=== PATIENT | male | born 1960 | race Caucasian/White ===

== ENCOUNTER 2017-02-08 02:14 | Inpatient (IN) | payer OTHER ==
[2017-02-08] MEDS ORDERED: ALBUTEROL SO4 2.5/IPRATROPIUM 0.5 INH SOL 3 ML VIAL.NEB. NEB ONE (02:28)
--- NOTE | 2017-02-08 02:37 | PDOC ---
History of Present Illness - General Chief Complaint: Shortness of Breath Stated Complaint: DIFFICULTY BREATHING Time Seen by Provider: 02/08/17 02:17 - History of Present Illness Initial Comments: 02/08/17 02:33 CHIEF COMPLAINT: shortness of breath HISTORY OF PRESENT ILLNESS: 56 yo M with hx of NIDDM, HTN, cerebral palsy, acid reflux presents to ED with shortness of breath since this evening. Patient reports that he was lying in bed when "the acid came up and went down my lungs. " He denies any fever, chills, vomiting, diarrhea. No recent travel or sick contacts. PAST MEDICAL HISTORY: as per HPI FAMILY HISTORY: Denies SOCIAL HISTORY: Denies tobacco, alcohol, illicit drug use. SURGICAL HISTORY: Denies ALLERGIES: aspirin REVIEW OF SYSTEMS General/Constitutional: Denies fever or chills. Denies weakness. HEENT: Denies change in vision. Denies ear pain or discharge. Denies sore throat. Cardiovascular: Denies chest pain. Respiratory: Wheezing, shortness of breath since this evening. Gastrointestinal: Denies nausea, vomiting, diarrhea or constipation. Denies rectal bleeding. Genitourinary: Denies dysuria, frequency, or change in urination. Musculoskeletal: Denies joint or muscle swelling or pain. Denies neck or back pain. Skin and breasts: Denies rash or easy bruising. Neurologic: Denies headache, vertigo, loss of consciousness, or loss of sensation. PHYSICAL EXAM General Appearance:Uncomfortable-appearing, appropriately dressed. HEENT: EOMI, PERRLA, normal ENT inspection, normal voice, TMs normal, pharynx normal. No conjunctival pallor. No photophobia, scleral icterus. Neck: Supple. Trachea midline. No tenderness, rigidity, carotid bruit, stridor , lymphadenopathy, or thyromegaly. Respiratory/Chest: Coughing. Increased work of breathing. Scattered wheezing bilaterally. No crackles, rales, rhonchi, stridor, dullness. Cardiovascular: RRR. S1, S2. No JVD, murmur, bradycardia, tachycardia. Gastrointestinal/Abdominal: Protuberant abdomen, non tender. No guarding. Normal bowel sounds. No organomegaly, pulsatile mass, guarding, hernia, hepatomegaly, splenomegaly. Musculoskeletal/Extremities: Normal inspection. FROM of all extremities, normal capillary refill. Pelvis Stable. No CVA tenderness. No tenderness to extremities, pedal edema, swelling, erythema or deformity. Integumentary: Appropriate color, dry, warm. No cyanosis, erythema, jaundice or rash Neurologic: sheet sewer II-XII intact. Fully oriented, alert. Appropriate mood/affect. Motor strength 5/5. No appreciable EOM palsy, facial droop or sensory deficit. Past History - Past Medical History Allergies/Adverse Reactions: Allergies Allergy/AdvReac Type Severity Reaction Status Date / Time aspirin Allergy Verified 02/08/17 02:28 Home Medications: Ambulatory Orders Amlodipine Besylate [Norvasc -] mg PO DAILY 02/08/17 Baclofen mg PO BID 02/08/17 Carvedilol [Coreg -] mg PO BID 02/08/17 Losartan Potassium 100 mg PO DAILY 02/08/17 Metformin HCl [Glucophage] 1,000 mg PO BID 02/08/17 Venlafaxine HCl ER [Effexor Xr -] mg PO DAILY 02/08/17 - Psycho/Social/Smoking Cessation Hx Suicidal Ideation: No Smoking History: Unknown if ever smoked *Physical Exam - Vital Signs Last Vital Signs Temp Pulse Resp BP Pulse Ox 97.7 F 71 20 151/92 96 02/08/17 02:16 02/08/17 02:16 02/08/17 02:16 02/08/17 02:16 02/08/17 02:16 ED Treatment Course - LABORATORY CBC & Chemistry Diagram: 02/08/17 03:00 02/08/17 03:00 - RADIOLOGY Radiology Studies Ordered: Category Date Time Status CHEST PA & LAT [RAD] Stat Radiology 02/08/17 02:33 Ordered Medical Decision Making - Medical Decision Making 02/08/17 04:56 56 yo M with hx of NIDDM, HTN, cerebral palsy, acid reflux presents to ED with shortness of breath since this evening. -CBC, CMP, trop, BNP, PT/INR -CXR, EKG -Duoneb EKG- NSR CXR negative for acute pathology. Glucose - 304 BUN 24 Labs otherwise unremarkable -1L IVF Patient continues to have increased work of breathing and wheezing b/l. -10 mg Decadron -Albuterol neb -D-dimer r/o PE. D-dimer 410. -CTA eval for PE 02/08/17 06:06 Impression: Suboptimal bolus. No central pulmonary embolism identified. Patchy infiltrates and a small area of consolidation in the dependent left base may represent pneumonia. Read by: Flakito Connell M.D. Patient continues to have increased work of breathing despite Duoneb and albuterol nebs and 10 mg Decadron. Discussed case with ER attending MD Sherman, will admit for inpatient services due to new O2 requirement. *DC/Admit/Observation/Transfer Diagnosis at time of Disposition: Pneumonia Qualifiers: Pneumonia type: due to unspecified organism Laterality: left Lung location: lower lobe of lung Qualified Code(s): J18.1 - Lobar pneumonia, unspecified organism - Discharge Dispostion Admit: Yes
[2017-02-08 03:18] LABS: BASOPHIL 0.3 % (0-2.0); EOSINOPHIL 2.2 % (0-4.5); MCH 28.3 pg (25.7-33.7); MCHC 34.3 g/dl (32.0-35.9); MEAN CELL VOLUME 82.6 fl (80-96); MEAN PLT VOLUME 9.2 fl (7.5-11.1); NEUTROPHILS 56.6 % (42.8-82.8); PLATELET COUNT 155 K/MM3 (134-434); RDW 14.5 % (11.9-15.9); WHITE BLOOD COUNT 6.2 K/mm3 (4.0-10.0)
[2017-02-08 03:42] LABS: ALBUMIN 3.6 g/dl (3.4-5.0); ALK PHOS 111 U/L (45-117); ANION GAP 9 (8-16); BILIRUBIN,TOTAL 0.4 mg/dL (0.2-1.0); CALCIUM 9.1 mg/dL (8.5-10.1); CO2 27 mmol/L (21-32); SGOT/AST 13 U/L (15-37); SGPT/ALT 42 U/L (12-78); TOT PROT 6.6 g/dl (6.4-8.2)
[2017-02-08 03:44] LABS: GLUCOSE,RANDOM 304 mg/dL (74-106)
[2017-02-08 03:52] LABS: CPK 66 IU/L (39-308); TROPONIN I < 0.02 ng/ml (0.00-0.05)
[2017-02-08] MEDS ORDERED: SODIUM CHLORIDE 0.9% 1000 ML INFUS.BAG IV ONE (03:54)
[2017-02-08] MEDS ORDERED: DEXAMETHASONE SOD PHOSPHATE 10 MG/1 ML VIAL IVPUSH ONE (04:00)
[2017-02-08] MEDS ORDERED: IPRATROPIUM BR 0.02% 0.5 MG/2.5 ML VIAL.NEB. NEB ONE (04:22)
[2017-02-08] MEDS ORDERED: ALBUTEROL SO4 0.083% IH SOL 2.5 MG/3 ML VIAL.NEB. NEB ONE (04:23)
[2017-02-08] MEDS ORDERED: DEXAMETHASONE SOD PHOSPHATE 10 MG/1 ML VIAL ONE (04:42)
--- NOTE | 2017-02-08 06:19 | PDOC ---
*Physical Exam - Vital Signs Last Vital Signs Temp Pulse Resp BP Pulse Ox 97.7 F 80 20 151/92 93 L 02/08/17 02:16 02/08/17 03:55 02/08/17 02:16 02/08/17 02:16 02/08/17 03:55 ED Treatment Course - LABORATORY CBC & Chemistry Diagram: 02/08/17 03:00 02/08/17 03:00 - ADDITIONAL ORDERS Additional order review: Laboratory Results 02/08/17 02/08/17 02/08/17 04:00 03:00 02:56 D-Dimer 410 H Sodium 140 Potassium 4.2 Chloride 104 Carbon Dioxide 27 Anion Gap 9 BUN 24 H Creatinine 1.0 Creat Clearance w eGFR > 60 Random Glucose 304 H* Calcium 9.1 Total Bilirubin 0.4 AST 13 L ALT 42 Alkaline Phosphatase 111 Creatine Kinase 66 Troponin I < 0.02 B-Natriuretic Peptide 8.51 Total Protein 6.6 Albumin 3.6 02/08/17 03:00 RBC 5.24 MCV 82.6 MCHC 34.3 RDW 14.5 MPV 9.2 Neutrophils % 56.6 Lymphocytes % 33.7 Monocytes % 7.2 Eosinophils % 2.2 Basophils % 0.3 - Medications Given in the ED: ED Medications Discontinued Medications Generic Name Dose Route Start Last Admin Trade Name Bob PRN Reason Stop Dose Admin Albuterol Sulfate 1 amp 02/08/17 04:23 02/08/17 04:42 Ventolin 0.083% Nebulizer Soln - NEB 02/08/17 04:24 1 amp ONCE ONE Administration Albuterol/Ipratropium 1 amp 02/08/17 02:28 02/08/17 03:07 Duoneb - NEB 02/08/17 02:29 1 amp ONCE ONE Administration Dexamethasone Sodium Phosphate 10 mg 02/08/17 04:00 02/08/17 04:41 Decadron Injection - IVPUSH 02/08/17 04:01 10 mg ONCE ONE Administration Ipratropium [place] 1 amp 02/08/17 04:22 02/08/17 04:41 Atrovent 0.02% Nebulizer - NEB 02/08/17 04:23 Not Given ONCE ONE Sodium Chloride 1,000 ml 02/08/17 03:54 02/08/17 04:41 Normal Saline - IV 02/08/17 03:55 1,000 ml ONCE ONE Administration Medical Decision Making - Medical Decision Making 02/08/17 06:18 Agree with NETWORK CONTRACT MANAGER's evaluation, assessment, and plan. 56M with DM, HTN, cerebral palsy, ?history of asthma in distant past, presenting with 1 day of SOB. Pt reports waking suddenly from sleep feeling like he was choking. He believes that he aspirated while sleeping. Pt with audible wheezes bilaterally on exam, suggestive of reactive airway disease. However, given acute onset SOB with hypoxia in ER, PE should be considered. - CTPE limited due to poor contrast distribution - Despite multiple nebs, pt still tachypneic and slightly hypoxic - Continue treatment for asthma, admit given new O2 requirement 02/08/17 06:51 *DC/Admit/Observation/Transfer Diagnosis at time of Disposition: Pneumonia Qualifiers: Pneumonia type: due to unspecified organism Laterality: left Lung location: lower lobe of lung Qualified Code(s): J18.1 - Lobar pneumonia, unspecified organism - Discharge Dispostion Condition at time of disposition: Stable - Attestations Physician Attestion: 02/08/17 06:52 I, Dr. Nader Sherman MD, attest that this document has been prepared under my direction and personally reviewed by me in its entirety. I further attest, that it accurately reflects all work, treatment, procedures and medical decision -making performed by me.
[2017-02-08] MEDS ORDERED: LEVOFLOXACIN 750 MG TABLET PO ONE (06:27)
[2017-02-08] MEDS ORDERED: PANTOPRAZOLE 40 MG TABLET (FP) PO ONE (06:32)
[2017-02-08] MEDS ORDERED: LEVOFLOXACIN 500 MG TABLET (FP) ONE (06:38)
[2017-02-08] MEDS ORDERED: PANTOPRAZOLE 40 MG TABLET (FP) ONE (06:38)
[2017-02-08] MEDS ORDERED: LEVOFLOXACIN 250 MG TABLET (FP) ONE (06:38)
[2017-02-08 07:57] LABS: VENOUS BLOOD GAS HCO3 21.8 meq/L (19-25); VENOUS PH 7.35 (7.32-7.42)
--- NOTE | 2017-02-08 08:49 | HP ---
CHIEF COMPLAINT: shortness of breath PCP: HISTORY OF PRESENT ILLNESS: 56 yo M with significant PMhx of NIDDM, HTN, cerebral palsy and GERD presents to ED via EMS with shortness of breath. He states that last night at approx. 2 am he felt as if "acid went down into my lung". He subsequently became very short of breath and in moderate distress. He mentions that for the past few days he has had a productive cough, generalized weakness and "felt warm". SOB is accompanied by sharp right sided chest pain made worse with deep inspiration. He mentions that about a week ago his children had upper respiratory infections. Denies JANG, palpitations, abd. pain, N/V/D/C or urinary symptoms. ER course was notable for: (1)Increased oxygen requirements despite Duonebs and Decadron administration ( O2 sat 93 on 2L ) (2)CTA was negative for PE but did show LLL infiltrate-possible PNA (3)Given Levaquin 750mg IV x1 Recent Travel: Denies PAST MEDICAL HISTORY:NIDDM, HTN, cerebral palsy and GERD PAST SURGICAL HISTORY: Lower ext. ligament release Social History: Smoking: Denies Alcohol: Denies Drugs: Denies Family History: Allergies aspirin Allergy (Verified 02/08/17 02:28) HOME MEDICATIONS: Home Medications Medication Instructions Recorded Amlodipine Besylate [Norvasc -] mg PO DAILY 02/08/17 Baclofen mg PO BID 02/08/17 Carvedilol [Coreg -] mg PO BID 02/08/17 Losartan Potassium 100 mg PO DAILY 02/08/17 Metformin HCl [Glucophage] 1,000 mg PO BID 02/08/17 Venlafaxine HCl ER [Effexor Xr -] mg PO DAILY 02/08/17 REVIEW OF SYSTEMS CONSTITUTIONAL:generalized weakness Absent: fever, chills, diaphoresis, malaise, loss of appetite, weight change HEENT: Absent: rhinorrhea, nasal congestion, throat pain, throat swelling, difficulty swallowing, mouth swelling, ear pain, eye pain, visual changes CARDIOVASCULAR:chest pain, Absent: syncope, palpitations, irregular heart rate, lightheadedness, peripheral edema RESPIRATORY: cough, shortness of breath, dyspnea with exertion Absent: , orthopnea, wheezing, stridor, hemoptysis GASTROINTESTINAL: Absent: abdominal pain, abdominal distension, nausea, vomiting, diarrhea, constipation, melena, hematochezia GENITOURINARY: Absent: dysuria, frequency, urgency, hesitancy, hematuria, flank pain, genital pain MUSCULOSKELETAL: Absent: myalgia, arthralgia, joint swelling, back pain, neck pain SKIN: Absent: rash, itching, pallor HEMATOLOGIC/IMMUNOLOGIC: Absent: easy bleeding, easy bruising, lymphadenopathy, frequent infections ENDOCRINE: Absent: unexplained weight gain, unexplained weight loss, heat intolerance, cold intolerance NEUROLOGIC: Absent: headache, focal weakness or paresthesias, dizziness, unsteady gait, seizure, mental status changes, bladder or bowel incontinence PSYCHIATRIC: Absent: anxiety, depression, suicidal or homicidal ideation, hallucinations. PHYSICAL EXAMINATION Vital Signs - 24 hr 02/08/17 02/08/17 06:54 08:06 Temperature 97.8 F Pulse Rate 101 H Pulse Rate [ 87 101 H Right] Respiratory 23 20 Rate Blood Pressure 177/87 139/77 [Left Arm] O2 Sat by Pulse 95 96 Oximetry (%) GENERAL: AAO x3 mild distress HEAD:NC/AT EYES: PERRLA,EOMI sclera anicteric, conjunctiva clear. No lid lag. EARS, NOSE, THROAT: Ears normal, nares patent, oropharynx clear without exudates. Moist mucous membranes. NECK: Normal ROM, no jvd, lad, or masses LUNGS: diminished breath sounds and fine rales of Left base. No wheezes, No accessory muscle use. HEART: Tachycardic, normal S1 and S2 without murmur, rub or gallop. ABDOMEN: Soft, obese, nontender, not distended, normoactive bowel sounds, no guarding, no rebound, no masses. No hepatomegaly or splenomegaly. MUSCULOSKELETAL: Normal range of motion at all joints. No bony deformities or tenderness. No CVA tenderness. UPPER EXTREMITIES: 2+ pulses, warm, well-perfused. No cyanosis. No clubbing. No peripheral edema. LOWER EXTREMITIES: 2+ pulses, warm, well-perfused. No calf tenderness. No peripheral edema. Bilateral lower ext. venous stasis changes. NEUROLOGICAL: Cranial nerves II-XII intact. Normal speech. Normal gait. PSYCHIATRIC: Cooperative. Good eye contact. anxious SKIN: Warm, dry, normal turgor, no rashes or lesions noted, normal capillary refill. Laboratory Results - last 24 hr 02/08/17 07:30 VBG pH 7.35 POC VBG pCO2 40.9 POC VBG pO2 39.0 Mixed VBG HCO3 21.8 ASSESSMENT/PLAN: 56 yo M with significant PMhx of NIDDM, HTN, cerebral palsy and GERD admitted for CAP vs. aspiration pneumonitis. Problem List - Problem (1) Pneumonia Assessment/Plan: * CTA shows possible LLL PNA * Will admit to med-surg * Given one time dose of Levaquin 750mg IV in ED. -->will continue for now. * Blood and sputum cultures pending. * Duonebs PRN for SOB. * Supplemental O2 to maintain SpO2 > 90--VBG did not show any acid/base disturbance. * Solumedrol 40mg IV BID * Encourage ambulation. * Incentive spirometry. * Repeat CBC in AM (no leukocytosis on initial labs) (2) HTN (hypertension) Assessment/Plan: * Will continue home meds of * Norvasc 10 mg PO DAILY * Coreg 12.5 mg PO BID * Losartan Potassium 100 mg PO DAILY (3) Type 2 diabetes mellitus Assessment/Plan: * Metformin held because of CTA contrast. * NISS with novolog * BGM ACHS * ADA diet. (4) GERD (gastroesophageal reflux disease) Assessment/Plan: * Protonix 40mg PO daily Visit type - Emergency Visit Emergency Visit: Yes ED Registration Date: 02/08/17 Care time: The patient presented to the Emergency Department on the above date and was hospitalized for further evaluation of their emergent condition. - New Patient This patient is new to me today: Yes Date on this admission: 02/08/17 - Critical Care Critical Care patient: No
--- NOTE | 2017-02-08 09:31 | HP ---
CHIEF COMPLAINT: Shortness of Breath PCP: Dr. Luci Donaldson HISTORY OF PRESENT ILLNESS: Pt is a 56yo M with hx of mildly progressing SOB with exertion, recent URI, GERD , and Cerebral palsy (w/ mild bilateral leg spasticity) who presented to the ER with acute onset shortness of breath. Last night, after the pt ate a bag of chips, he was resting and had a bout of acid reflux which went down his windpipe. He started coughing and quickly vomitted x1 NBNB emesis. He acutely felt short of breath and chest tightness and was brought to the ER via ambulance. The patient has been told he has possible reactive airway disease in the past, but does not take inhalers at home. He states he has been having chronic SOB over the past couple of weeks, with "attacks" with allergens (cats, ASA, pollen), sometimes exercise, and reflux. He has a remote history of occupational exposure and second hand smoking. He has no problems swallowing, does not follow with a slot host. In the ED he was found to have labored respirations, and was given 2x nebulizer treatments with 10mg Decadron x1 with improvement. O2 sats without O2 was 92-94. ER course was notable for: (1) Labs - No white count (2) EKG - WNL (3) CXR - Negative (4) High d-dimer; CTA - suboptimal bolus, No PE, patchy infiltrates and small area of consolidation in LLB (5) Levoquin 750mg PO x1 Recent Travel: Denies PAST MEDICAL HISTORY: ?Reactive Airway Disease, GERD, Cerebral Palsy, NIDDM, HTN PAST SURGICAL HISTORY: ?Nasal polyp removal, B/L LE tendon release for spasticity relief Social History: Smoking: Remote 2nd hand smoking Alcohol: Occasional Drugs: Denies Family History: No Family Hx of Asthma; Mom passed of Gastric CA; Dad passed of Kidney CA Allergies As per Patient: Cats, Pollen aspirin Allergy (Verified 02/08/17 02:28) HOME MEDICATIONS: Home Medications Medication Instructions Recorded Amlodipine Besylate [Norvasc -] 10 mg PO DAILY 02/08/17 Baclofen 10 mg PO TID 02/08/17 Carvedilol [Coreg -] 12.5 mg PO BID 02/08/17 Losartan Potassium 100 mg PO DAILY 02/08/17 Metformin HCl [Glucophage] 1,000 mg PO BID 02/08/17 Topiramate [Topamax] 50 mg PO BID 02/08/17 Venlafaxine HCl ER [Effexor Xr -] 150 mg PO DAILY 02/08/17 Medication Verification: Verified 02/08/17 REVIEW OF SYSTEMS CONSTITUTIONAL: Absent: fever, chills, diaphoresis, generalized weakness, malaise, loss of appetite, weight change HEENT: Absent: rhinorrhea, nasal congestion, throat pain, throat swelling, difficulty swallowing, mouth swelling, ear pain, eye pain, visual changes Present: Post nasal drip CARDIOVASCULAR: Absent: chest pain, syncope, palpitations, irregular heart rate, lightheadedness , peripheral edema RESPIRATORY: Absent: orthopnea, wheezing, stridor, hemoptysis Present: chest tightness, SOB with exertion, dry cough GASTROINTESTINAL: Absent: abdominal pain, abdominal distension, nausea, vomiting, diarrhea, constipation, melena, hematochezia Present: reflux GENITOURINARY: Absent: dysuria, frequency, urgency, hesitancy, hematuria, flank pain, genital pain MUSCULOSKELETAL: Absent: myalgia, arthralgia, joint swelling, back pain, neck pain Present: spasticity in both legs SKIN: Absent: rash, itching, pallor HEMATOLOGIC/IMMUNOLOGIC: Absent: easy bleeding, easy bruising, lymphadenopathy, frequent infections ENDOCRINE: Absent: unexplained weight gain, unexplained weight loss, heat intolerance, cold intolerance NEUROLOGIC: Absent: headache, focal weakness or paresthesias, dizziness, unsteady gait, seizure, mental status changes, bladder or bowel incontinence PSYCHIATRIC: Absent: anxiety, depression, suicidal or homicidal ideation, hallucinations. PHYSICAL EXAMINATION Vital Signs - 24 hr 02/08/17 02/08/17 06:54 08:06 Temperature 97.8 F Pulse Rate 101 H Pulse Rate [ 87 101 H Right] Respiratory 23 20 Rate Blood Pressure 177/87 139/77 [Left Arm] O2 Sat by Pulse 95 96 Oximetry (%) GEN: AAOx3, NAD, comfortably breathing HEENT: PERRLA, EOMi, No pharyngeal exudate, no cervical LAD LUNG: Mod inspiratory effort, Crackles in L lung [place], no wheezes CV: S1, S2, RRR, no murmurs ABD: Obese, soft, NT, ND, normoactive BS MSK: 2+ pitting edema on BLLE, no erythema, BLLE spasticity Neuro: CN 2-12 intact, sensation intact in face/body; MSK 5/5; Reflexes 1+ throughout Laboratory Results - last 24 hr 02/08/17 07:30 VBG pH 7.35 POC VBG pCO2 40.9 POC VBG pO2 39.0 Mixed VBG HCO3 21.8 Laboratory Last Values WBC 6.2 K/mm3 (4.0-10.0) 02/08/17 03:00 RBC 5.24 M/mm3 (4.00-5.60) 02/08/17 03:00 Hgb 14.9 GM/dL (11.7-16.9) 02/08/17 03:00 Hct 43.3 % (35.4-49) 02/08/17 03:00 MCV 82.6 fl (80-96) 02/08/17 03:00 MCH 28.3 pg (25.7-33.7) 02/08/17 03:00 MCHC 34.3 g/dl (32.0-35.9) 02/08/17 03:00 RDW 14.5 % (11.9-15.9) 02/08/17 03:00 Plt Count 155 K/MM3 (134-434) 02/08/17 03:00 MPV 9.2 fl (7.5-11.1) 02/08/17 03:00 Neutrophils % 56.6 % (42.8-82.8) 02/08/17 03:00 Lymphocytes % 33.7 % (8-40) 02/08/17 03:00 Monocytes % 7.2 % (3.8-10.2) 02/08/17 03:00 Eosinophils % 2.2 % (0-4.5) 02/08/17 03:00 Basophils % 0.3 % (0-2.0) 02/08/17 03:00 D-Dimer 410 ng/ml (<200-235) H 02/08/17 04:00 VBG pH 7.35 (7.32-7.42) 02/08/17 07:30 POC VBG pCO2 40.9 mmHg (38-52) 02/08/17 07:30 POC VBG pO2 39.0 mmHg (28-48) 02/08/17 07:30 Mixed VBG HCO3 21.8 meq/L (19-25) 02/08/17 07:30 Sodium 140 mmol/L (136-145) 02/08/17 03:00 Potassium 4.2 mmol/L (3.5-5.1) 02/08/17 03:00 Chloride 104 mmol/L (98-107) 02/08/17 03:00 Carbon Dioxide 27 mmol/L (21-32) 02/08/17 03:00 Anion Gap 9 (8-16) 02/08/17 03:00 BUN 24 mg/dL (7-18) H 02/08/17 03:00 Creatinine 1.0 mg/dL (0.7-1.3) 02/08/17 03:00 Creat Clearance w eGFR > 60 (>60) 02/08/17 03:00 Random Glucose 304 mg/dL (74-106) H* 02/08/17 03:00 Calcium 9.1 mg/dL (8.5-10.1) 02/08/17 03:00 Total Bilirubin 0.4 mg/dL (0.2-1.0) 02/08/17 03:00 AST 13 U/L (15-37) L 02/08/17 03:00 ALT 42 U/L (12-78) 02/08/17 03:00 Alkaline Phosphatase 111 U/L (45-117) 02/08/17 03:00 Creatine Kinase 66 IU/L (39-308) 02/08/17 02:56 Troponin I < 0.02 ng/ml (0.00-0.05) 02/08/17 02:56 B-Natriuretic Peptide 8.51 pg/ml (5-125) 02/08/17 02:56 Total Protein 6.6 g/dl (6.4-8.2) 02/08/17 03:00 Albumin 3.6 g/dl (3.4-5.0) 02/08/17 03:00 ASSESSMENT/PLAN: Pt is a 56yo M with hx of mildly progressing SOB with exertion, recent URI, GERD , and Cerebral palsy (w/ mild bilateral leg spasticity) who presented to the ER with acute onset shortness of breath. He was given breathing treatments and Levaquin in the ER. # Aspiration Pneumonitis - CTA showed patchy infiltrates and small area of consolidation in LLB - Continue Levaquin 750mg IV QD - IV Flagyl 500mg Q8 - Monitor fever, WBC for progression to PNA - Pending Sputum cx - Consulted Pulmonology # Asthma Exacerbation - Multiple exacerbating factors, acutely by aspiration pneumonitis - Duonebs PRN + IV solumedrol 40mg BID - Monitor PEF (330 in ER) - Bentley PEF using height/age is 546 - Monitor for improvement in breathing/chest tightness - Outpatient f/u with slot host # GERD - Pt on no meds - Start on Protonix 40mg PO QD # NIDDM - Hold metformin due to recent contrast from CTA - BGMs and SSI - A1C # HTN - Pt did not take his home meds today - Continue Norvasc + Losartan + Carvedilol # Cerebral Palsy - Continue Baclofen for spasticity # Hx of Migraines - Continue Topiramate # Hx of MDD - Continue Venlafaxine # FEN - Fluids: Nont - Electrolytes: No abnormalities - Nutrition: Diabetic diet # Prophylaxis - DVT: Heparin SQ 5000 TID - GI: On protonix - Deconditioning: PT to be ordered Visit type - Emergency Visit Emergency Visit: No - New Patient This patient is new to me today: No - Critical Care Critical Care patient: No
[2017-02-08] MEDS ORDERED: BACLOFEN 10 MG TABLET (FP) PO SCH (10:00)
--- NOTE | 2017-02-08 11:09 | EKG ---
Test Reason : Blood Pressure : / mmHG Vent. Rate : 074 BPM Atrial Rate : 074 BPM P-R Int : 152 ms QRS Dur : 102 ms QT Int : 392 ms P-R-T Axes : 024 037 047 degrees QTc Int : 435 ms NORMAL SINUS RHYTHM ATYPICAL R WAVE PROGRESSION V2 NO PREVIOUS ECGS AVAILABLE REPEAT EKG IF CLINICALLY INDICATED Confirmed by MARIAJOSE BATES MD ([id number]) on 02/08/2017 11:08:23 AM Referred By: Confirmed By:MARIAJOSE BATES MD
[2017-02-08] MEDS ORDERED: ALBUTEROL SO4 2.5/IPRATROPIUM 0.5 INH SOL 3 ML VIAL.NEB. NEB PRN (11:20)
[2017-02-08] MEDS: TOPIRAMATE 25 MG TABLET (FP) PO SCH ×2 (11:44→21:28)
[2017-02-08] MEDS: CARVEDILOL 12.5 MG TABLET (FP) PO SCH ×2 (11:44→21:28)
[2017-02-08] MEDS: amLODIPine BESYLATE 10 MG TABLET (FP) PO SCH (11:44)
[2017-02-08] MEDS: LOSARTAN POTASSIUM 50 MG TABLET (FP) PO SCH (11:44)
[2017-02-08] MEDS: VENLAFAXINE HCL 75 MG E.R. CAPSULES (FP) PO SCH (11:46)
[2017-02-08] MEDS ORDERED: INSULIN (NOVOLOG) ASPART 100 UNITS/ML 10ML VIAL ONE ×2 (12:13→12:44)
[2017-02-08] MEDS: INSULIN SLIDING SCALE (NOVOLOG) 1 VIAL SQ SCH ×2 (12:23→18:39)
[2017-02-08] MEDS: methylPREDNISolone NA SUCC 40 MG/1 ML VIAL IVPB SCH (12:24)
--- NOTE | 2017-02-08 15:10 | PN ---
Teaching Attending Note Name of Resident: Calderon Lomas ATTENDING PHYSICIAN STATEMENT I saw and evaluated the patient. I reviewed the resident's note and discussed the case with the resident. I agree with the resident's findings and plan as documented. SUBJECTIVE: Patient is a 56yo male presented with acute shortness of breath, states that he was eating Chetoos the whole bad, started to cough and became very short of breath. but his shortness of breath was going for the past 2 days. OBJECTIVE: Vital Signs Temperature 98.6 F 02/08/17 11:18 Pulse Rate 103 H 02/08/17 11:18 Respiratory Rate 18 02/08/17 11:18 Blood Pressure 152/91 02/08/17 11:18 O2 Sat by Pulse Oximetry (%) 96 02/08/17 08:06 CBCD WBC 6.2 K/mm3 (4.0-10.0) 02/08/17 03:00 RBC 5.24 M/mm3 (4.00-5.60) 02/08/17 03:00 Hgb 14.9 GM/dL (11.7-16.9) 02/08/17 03:00 Hct 43.3 % (35.4-49) 02/08/17 03:00 MCV 82.6 fl (80-96) 02/08/17 03:00 MCHC 34.3 g/dl (32.0-35.9) 02/08/17 03:00 RDW 14.5 % (11.9-15.9) 02/08/17 03:00 Plt Count 155 K/MM3 (134-434) 02/08/17 03:00 MPV 9.2 fl (7.5-11.1) 02/08/17 03:00 CMP Sodium 140 mmol/L (136-145) 02/08/17 03:00 Potassium 4.2 mmol/L (3.5-5.1) 02/08/17 03:00 Chloride 104 mmol/L (98-107) 02/08/17 03:00 Carbon Dioxide 27 mmol/L (21-32) 02/08/17 03:00 Anion Gap 9 (8-16) 02/08/17 03:00 BUN 24 mg/dL (7-18) H 02/08/17 03:00 Creatinine 1.0 mg/dL (0.7-1.3) 02/08/17 03:00 Creat Clearance w eGFR > 60 (>60) 02/08/17 03:00 Random Glucose 304 mg/dL (74-106) H* 02/08/17 03:00 Calcium 9.1 mg/dL (8.5-10.1) 02/08/17 03:00 Total Bilirubin 0.4 mg/dL (0.2-1.0) 02/08/17 03:00 AST 13 U/L (15-37) L 02/08/17 03:00 ALT 42 U/L (12-78) 02/08/17 03:00 Alkaline Phosphatase 111 U/L (45-117) 02/08/17 03:00 Total Protein 6.6 g/dl (6.4-8.2) 02/08/17 03:00 Albumin 3.6 g/dl (3.4-5.0) 02/08/17 03:00 CARDIAC ENZYMES Creatine Kinase 66 IU/L (39-308) 02/08/17 02:56 Troponin I < 0.02 ng/ml (0.00-0.05) 02/08/17 02:56 Current Medications Generic Name Dose Route Start Last Admin Trade Name Freq PRN Reason Stop Dose Admin Albuterol/Ipratropium 1 amp 02/08/17 11:20 Duoneb - NEB Q4H PRN SHORTNESS OF BREATH Amlodipine Besylate 10 mg 02/08/17 10:00 02/08/17 11:44 Norvasc - PO 10 mg DAILY CALDERON Administration Baclofen 10 mg 02/08/17 14:00 Lioresal - PO TID CALDERON Carvedilol 12.5 mg 02/08/17 10:00 02/08/17 11:44 Coreg - PO 12.5 mg BID CALDERON Administration Heparin Sodium (Porcine) 5,000 unit 02/08/17 14:00 Heparin - SQ TID CALDERON Levofloxacin 150 mls @ 100 mls/hr 02/09/17 09:00 Levaquin 750 Mg Premixed Ivpb - IVPB 02/09/17 10:29 ONCE ONE Insulin Aspart 1 vial 02/08/17 16:30 02/08/17 12:23 Novolog Vial Sliding Scale - SQ 6 units TIDAC CALDERON Administration Protocol Losartan Potassium 100 mg 02/08/17 10:00 02/08/17 11:44 Cozaar - PO 100 mg DAILY CALDERON Administration Methylprednisolone Sodium Succinate 40 mg 02/08/17 11:30 02/08/17 12:24 Solu-Medrol - IVPB 40 mg DAILY CALDERON Administration Pantoprazole Sodium 40 mg 02/09/17 10:00 Protonix - PO DAILY CALDERON Topiramate 50 mg 02/08/17 10:00 02/08/17 11:44 Topamax - PO 50 mg BID CALDERON Administration Venlafaxine HCl 150 mg 02/08/17 10:00 02/08/17 11:46 Effexor Xr - PO 150 mg DAILY CALDERON Administration Home Medications Medication Instructions Recorded Amlodipine Besylate [Norvasc -] 10 mg PO DAILY 02/08/17 Baclofen 10 mg PO TID 02/08/17 Carvedilol [Coreg -] 12.5 mg PO BID 02/08/17 Losartan Potassium 100 mg PO DAILY 02/08/17 Metformin HCl [Glucophage] 1,000 mg PO BID 02/08/17 Topiramate [Topamax] 50 mg PO BID 02/08/17 Venlafaxine HCl ER [Effexor Xr -] 150 mg PO DAILY 02/08/17 PE: per residents note CTA of lung: showed patchy infiltrates and small area of consolidation in LLB ASSESSMENT AND PLAN: Pt is a 56yo M with hx of mildly progressing SOB with exertion, recent URI, GERD , and Cerebral palsy (w/ mild bilateral leg spasticity) who presented to the ER with acute onset shortness of breath. He was given breathing treatments and Levaquin in the ER. # Acute Patchy infiltrate s/p Aspiration his own secretions/cheetos on Levaquin added Flagyl for aspiration anaerobic coverage yeyo get ID to see the patient as well. # Asthma Exacerbation on Duoneb continue # GERD added protonix (short term use) # NIDDM Hold metformin due to recent contrast from CTA, BGMs and SSI, follow Hemoglobin A1c # HTN continue home meds Norvasc , Losartan, Carvedilol ( patient takes it for his blood pressure but thinks that might be causing him to have shortness of breath) Please call his fire alarm installer for further information. # Cerebral Palsy continue Baclofen for spasticity # Hx of Migraines continue Topiramate # Hx of Depression continue Venlafaxine DVT PX: Heparin
[2017-02-08] MEDS: BACLOFEN 10 MG TABLET (FP) PO SCH ×2 (15:37→21:28)
[2017-02-08] MEDS: HEPARIN NA (PORCINE) 5,000 UNITS/ML 1ML VIAL SQ SCH ×3 (15:37→21:38)
--- NOTE | 2017-02-08 16:50 | PN ---
Progress Note (short form) - Note Progress Note: PULMONARY CONSULTATION DICTATED 02/08/17 IMP LIKELY ASPIRATION PNEUMONIA LLL GERD CEREBRAL PALSY LIKELY OSAS OBESITY ? HYPER-REACTIVE AIRWAY DM PLAN ANTIBIOTICS INHALED BRONCHODILATORS F/U CHEST X-RAY SLEEP STUDIES OUTPATIENT PFTS OUTPATIENT DR BRISENO Problem List - Problems (1) GERD (gastroesophageal reflux disease) Code(s): K21.9 - GASTRO-ESOPHAGEAL REFLUX DISEASE WITHOUT ESOPHAGITIS Qualifiers: Esophagitis presence: esophagitis presence not specified Qualified Code(s): K21.9 - Gastro-esophageal reflux disease without esophagitis (2) HTN (hypertension) Code(s): I10 - ESSENTIAL (PRIMARY) HYPERTENSION Qualifiers: Hypertension type: essential hypertension Qualified Code(s): I10 - Essential (primary) hypertension (3) Pneumonia Code(s): J18.9 - PNEUMONIA, UNSPECIFIED ORGANISM Qualifiers: Pneumonia type: due to unspecified organism Laterality: left Lung location: lower lobe of lung Qualified Code(s): J18.1 - Lobar pneumonia, unspecified organism (4) Type 2 diabetes mellitus Code(s): E11.9 - TYPE 2 DIABETES MELLITUS WITHOUT COMPLICATIONS Qualifiers: Diabetes mellitus complication status: with unspecified complications Diabetes mellitus long-term insulin use: without oil heaterman use Qualified Code(s): E11.8 - Type 2 diabetes mellitus with unspecified complications; Z79.4 - long-term (current) use of insulin (5) Aspiration into lower respiratory tract Code(s): T17.800A - UNSP FOREIGN BODY IN OTH PRT RESP TRACT CAUSING ASPHYX, INIT
--- NOTE | 2017-02-08 17:36 | CONS ---
PULMONARY CONSULTATION DATE OF CONSULTATION: 02/08/2017 REFERRING PHYSICIAN: Nilton Huff MD HISTORY OF PRESENT ILLNESS: The patient is a 56-year-old white male with a past medical history of GERD, cerebral palsy, recent URI, history of bilateral leg spasticity, restless legs syndrome, questionable hyperreactive airway syndrome, admitted to [facility] with acute onset of shortness of breath. Patient states that last night, the night at admission, after eating a bag of chips, he was resting in bed, lying flat when he felt a bout of acid reflux and went down his windpipe. He said he started coughing, felt burning in his chest. It also developed wheezing. EMS was called, and the patient initially noted in the emergency room to be in acute respiratory distress. At which time, he was administered inhaled bronchodilators and supplemental O2 and steroids with good clinical response. He denies any history of occupational exposure to chemicals or fumes. He has no history of aspiration. He denies any history of asthma, but states that he has had wheezing in the past. He denies any recent travel. There is no DVT or PE in the past. Of note is he states he is a heavy snorer and has excessive daytime sleepiness which he attributes to his medication. On admission, he had a CT scan of the chest performed which revealed evidence of a left lower lobe opacity. He was placed on antibiotic therapy. PAST MEDICAL HISTORY: Again includes cerebral palsy, severe GERD, hypertension, likely hyperreactive airway. REVIEW OF SYSTEMS: Positive cough. Positive wheezing. Positive shortness of breath. Positive dyspnea on exertion. Positive GERD. No chest pain. No palpitations. No abdominal pain. No lower extremity edema. Positive lower extremity spasticity. CURRENT MEDICATIONS: Include Solu-Medrol, Cozaar, Levaquin, Flagyl, heparin, Topamax, Effexor, DuoNeb, Coreg, Norvasc, Lioresal, NovoLog. PHYSICAL EXAMINATION: General: The patient is a well-developed, well-nourished, obese male, awake, alert, in no acute distress. Vital Signs: He is currently afebrile. Blood pressure is 148/89, respiratory rate is 18, O2 saturation is 97% on 2 L. HEENT: Normocephalic, atraumatic. Neck: Supple. Heart: Regular. S1, S2. Chest: Clear. Abdomen: Soft. Bowel sounds positive. Extremities: No sign of edema. LABORATORY DATA: WBC is 6.2, hemoglobin 14.9, hematocrit 43.3, with a platelet count 155,000. D-dimer is 410. Venous blood gas shows pH of 7.35, pCO2 of 40, a pO2 of 39. Chemistries: Glucose 304, BUN 24, creatinine 1.0. Chest x-ray: Essentially a clear film. Chest CT reveals left lower lobe infiltrate, consolidation. IMPRESSION: 1. Likely aspiration pneumonia, left lower lobe. bacterial versus chemical pneumonitis. 2. History of cerebral palsy. 3. Severe gastroesophageal reflux disease. 4. Likely obstructive sleep apnea syndrome. 5. Hyperreactive airway syndrome. PLAN: Continue antibiotic therapy, inhaled bronchodilators, supplemental O2. Also, obtain followup chest x-ray. Consider p.o. antibiotics if the patient remains afebrile. Also, PFTs as an outpatient and sleep study as an outpatient. AMAN BRISENO M.D. [id number]
[2017-02-08] MEDS: METRONIDAZOLE 500 MG PREMIXED 100 ML IVPB SCH ×2 (18:38)
[2017-02-08 23:41] VITALS: BMI 31.5
[2017-02-09] MEDS: METRONIDAZOLE 500 MG PREMIXED 100 ML IVPB SCH (01:19)
[2017-02-09] MEDS ORDERED: diphenhydrAMINE HCL 25 MG CAPSULE (FP) PO PRN (01:50)
[2017-02-09] MEDS: HEPARIN NA (PORCINE) 5,000 UNITS/ML 1ML VIAL SQ SCH ×2 (06:18→14:43)
[2017-02-09] MEDS: BACLOFEN 10 MG TABLET (FP) PO SCH ×2 (06:18→14:42)
[2017-02-09] MEDS: INSULIN SLIDING SCALE (NOVOLOG) 1 VIAL SQ SCH ×3 (06:20→18:06)
[2017-02-09 07:11] LABS: MCH 27.4 pg (25.7-33.7); MCHC 33.3 g/dl (32.0-35.9); MEAN CELL VOLUME 82.2 fl (80-96); MEAN PLT VOLUME 8.8 fl (7.5-11.1); PLATELET COUNT 147 K/MM3 (134-434); RDW 14.7 % (11.9-15.9); WHITE BLOOD COUNT 14.9 K/mm3 (4.0-10.0)
[2017-02-09 07:31] LABS: ANION GAP 9 (8-16); CALCIUM 8.7 mg/dL (8.5-10.1); CO2 22 mmol/L (21-32); GLUCOSE,RANDOM 233 mg/dL (74-106)
[2017-02-09] MEDS ORDERED: LEVOFLOXACIN 750 MG IVPB 150 ML IVPB ONE (09:00)
--- NOTE | 2017-02-09 09:47 | CONSULT ---
Consultation: REQUESTING PROVIDER: Dr. Ng CONSULT REQUEST: We have been asked to medically evaluate this patient for PNA. HISTORY OF PRESENT ILLNESS: 56yo man with PMH of cerebral palsy (mild spasticity of feet), NIDDM, GERD who presents after reflux exacerbation and aspiration of projectile emesis. The patient was at [facility] when he was awoken by his acid reflux. He was lying supine and started to projectile vomit (NBNB). As he was moving and attempting to suppress the vomit he felt some of the reflux go down his windpipe. He felt acute onset of SOB and chest tightness, which prompted him to go to [facility] ED. He denies any fever, chills, or nausea. No further emesis. No dysuria, frequency , or hesitancy. Of note, he was recently evaluated for UTI/hematuria. Work-up was negative. FAMILY HISTORY: Mom - of gastric Ca, dad - kidney Ca ALLERGIES: ASA REVIEW OF SYSTEMS: CONSTITUTIONAL: Absent: fever, chills, diaphoresis, generalized weakness, malaise, loss of appetite, weight change HEENT: Absent: rhinorrhea, nasal congestion, throat pain, throat swelling, difficulty swallowing, mouth swelling, ear pain, eye pain, visual changes CARDIOVASCULAR: Absent: chest pain, syncope, palpitations, irregular heart rate, lightheadedness , peripheral edema RESPIRATORY: +SOB, PHELAN Absent: cough, shortness of breath, dyspnea with exertion, orthopnea, wheezing, stridor, hemoptysis GASTROINTESTINAL: +reflux, 1x emesis Absent: abdominal pain, abdominal distension, nausea, vomiting, diarrhea, constipation, melena, hematochezia GENITOURINARY: Absent: dysuria, frequency, urgency, hesitancy, hematuria, flank pain, genital pain MUSCULOSKELETAL: Absent: myalgia, arthralgia, joint swelling, back pain, neck pain SKIN: Absent: rash, itching, pallor HEMATOLOGIC/IMMUNOLOGIC: Absent: easy bleeding, easy bruising, lymphadenopathy, frequent infections ENDOCRINE: Absent: unexplained weight gain, unexplained weight loss, heat intolerance, cold intolerance NEUROLOGIC: Absent: headache, focal weakness or paresthesias, dizziness, unsteady gait, seizure, mental status changes, bladder or bowel incontinence PSYCHIATRIC: Absent: anxiety, depression, suicidal or homicidal ideation, hallucinations. PHYSICAL EXAMINATION Vital Signs - 24 hr 02/08/17 02/08/1717 11:18 15:11 18:00 Temperature 97.9 F 97.9 F 98.7 F Pulse Rate 93 H 98 H 100 H Respiratory 18 18 18 Rate Blood Pressure 147/84 148/89 136/74 02/08/17 02/09/17 22:00 06:23 Temperature 98.6 F 98.2 F Pulse Rate 94 H 72 Respiratory 18 20 Rate Blood Pressure 135/72 122/72 GENERAL: Awake, alert, and fully oriented, in no acute distress. HEAD: Normal with no signs of trauma. EYES: Pupils equal, round and reactive to light, extraocular movements intact, sclera anicteric, conjunctiva clear EARS, NOSE, THROAT: Oropharynx clear without exudates. Moist mucous membranes. NECK: wide circumference, supple without lymphadenopathy LUNGS: L lung base crackles, R clear, No accessory muscle use. HEART: rrr, normal S1 and S2 without murmur, rub or gallop. ABDOMEN: Obese, soft, ntnd, normoactive bs UPPER EXTREMITIES: 2+ pulses, warm, well-perfused. No cyanosis. No clubbing. No peripheral edema. LOWER EXTREMITIES: 2+ pulses, warm, well-perfused. b/l stasis dermatitis, b/l spasticity SKIN: Warm, dry, normal turgor, no rashes or lesions noted. Laboratory Results - last 24 hr 02/08/17 02/08/17 02/08/17 12:00 12:01 18:36 WBC RBC Hgb Hct MCV MCH MCHC RDW Plt Count MPV Sodium Potassium Chloride Carbon Dioxide Anion Gap BUN Creatinine POC Glucometer 273 256 Random Glucose Hemoglobin A1c % 8.4 H Calcium 02/09/17 02/09/17 02/09/17 05:59 06:00 06:00 WBC 14.9 H D RBC 5.01 Hgb 13.7 Hct 41.2 MCV 82.2 MCH 27.4 MCHC 33.3 RDW 14.7 Plt Count 147 MPV 8.8 Sodium 140 Potassium 3.9 Chloride 109 H Carbon Dioxide 22 Anion Gap 9 BUN 25 H Creatinine 1.0 POC Glucometer 235 Random Glucose 233 H D Hemoglobin A1c % Calcium 8.7 IMAGING: Chest CT/CTA (02/08/17): "suboptimal bolus. no central PE identified. patchy infiltrate and small area of consolidation in the dependent lung base suspicious for pneumonia." Active Medications Home Medication List Medication Instructions Recorded Confirmed Type Amlodipine Besylate [Norvasc -] 10 mg PO DAILY 02/08/17 02/08/17 History Baclofen 10 mg PO TID 02/08/17 02/08/17 History Carvedilol [Coreg -] 12.5 mg PO BID 02/08/17 02/08/17 History Losartan Potassium 100 mg PO DAILY 02/08/17 02/08/17 History Metformin HCl [Glucophage] 1,000 mg PO BID 02/08/17 02/08/17 History Topiramate [Topamax] 50 mg PO BID 02/08/17 02/08/17 History Venlafaxine HCl ER [Effexor Xr -] 150 mg PO DAILY 02/08/17 02/08/17 History Active Medications Albuterol/Ipratropium (Duoneb -) 1 amp NEB Q4H PRN PRN Reason: SHORTNESS OF BREATH Last Admin: 02/08/17 14:20 Dose: 1 amp Amlodipine Besylate (Norvasc -) 10 mg PO DAILY [facility] Last Admin: 02/09/17 10:39 Dose: 10 mg Baclofen (Lioresal -) 10 mg PO TID [facility] Last Admin: 02/09/17 14:42 Dose: 10 mg Carvedilol (Coreg -) 12.5 mg PO BID [facility] Last Admin: 02/09/17 10:39 Dose: 12.5 mg Diphenhydramine HCl (Benadryl -) 25 mg PO HS PRN PRN Reason: INSOMNIA Last Admin: 02/09/17 02:04 Dose: 25 mg Heparin Sodium (Porcine) (Heparin -) 5,000 unit SQ TID [facility] Last Admin: 02/09/17 14:43 Dose: 5,000 unit Ampicillin Sodium/Sulbactam (Sodium 1.5 gm/ Sodium Chloride) 100 mls @ 200 mls/ hr IVPB Q6H-IV [facility] Last Admin: 02/09/17 14:44 Dose: 200 mls/hr Insulin Aspart (Novolog Vial Sliding Scale -) 1 vial SQ TIDAC CALDERON PRN Reason: Protocol Last Admin: 02/09/17 11:52 Dose: 6 units Losartan Potassium (Cozaar -) 100 mg PO DAILY [facility] Last Admin: 02/09/17 10:39 Dose: 100 mg Methylprednisolone Sodium Succinate (Solu-Medrol -) 40 mg IVPB DAILY [facility] Last Admin: 02/09/17 10:40 Dose: 40 mg Pantoprazole Sodium (Protonix -) 40 mg PO DAILY [facility] Last Admin: 02/09/17 10:39 Dose: 40 mg Topiramate (Topamax -) 50 mg PO BID [facility] Last Admin: 02/09/17 10:40 Dose: 50 mg Venlafaxine HCl (Effexor Xr -) 150 mg PO DAILY [facility] Last Admin: 02/09/17 10:40 Dose: 150 mg ASSESSMENT/PLAN: 56yo man with PMH of cerebral palsy, NIDDM, GERD, who presents with aspiration pneumonia vs chemical pneumonitis. Also discussed with patient recommendation to see a benefits sales consultant for foot care as well as f/u with GI physician due to GERD and family h/o of gastric cancer (mother). -switch antibiotics to Unasyn 1.5g IVPH Q6hr -can discharge on PO Augmentin PO d/w Dr. Oneal Cope MD PGY-1 Visit type - Emergency Visit Emergency Visit: No - New Patient This patient is new to me today: Yes Date on this admission: 02/09/17 - Critical Care Critical Care patient: No
--- NOTE | 2017-02-09 09:48 | PN ---
Teaching Attending Note Name of Resident: Shirley Cope ATTENDING PHYSICIAN STATEMENT I saw and evaluated the patient. I reviewed the resident's note and discussed the case with the resident. I agree with the resident's findings and plan as documented. SUBJECTIVE: breathing improved today OBJECTIVE: Vital Signs Period Temp Pulse Resp BP Sys/Coello Pulse Ox Last 24 Hr 97.9 F-98.7 F 72-103 18-20 122-152/72-91 fair dentition cor-rrr lungs crackles left base abd soft,nt ext scaly feet CBC, BMP 02/09/17 06:00 02/09/17 06:[address]- LLL infiltrate ASSESSMENT AND PLAN: aspirationn pneumonia/pneumonitis GERD Diabetes have suggested to patient outpt f/u with GI for evaluation of GERD weight loss counseling as well suggest switch to unasyn with plans for po augmentin when ready for discharge
[2017-02-09] MEDS ORDERED: PANTOPRAZOLE 40 MG TABLET (FP) PO SCH (10:00)
[2017-02-09] MEDS ORDERED: PT OWN MED DRAWER 7, Y5N ONE (10:33)
[2017-02-09] MEDS ORDERED: AMPICILLIN NA/SULBACTAM NA 1.5 GM VIAL ONE ×2 (10:34→14:30)
[2017-02-09] MEDS ORDERED: SODIUM CHLORIDE 100 ML IVPB ONE ×2 (10:34→14:30)
[2017-02-09] MEDS: amLODIPine BESYLATE 10 MG TABLET (FP) PO SCH (10:39)
[2017-02-09] MEDS: CARVEDILOL 12.5 MG TABLET (FP) PO SCH (10:39)
[2017-02-09] MEDS: LOSARTAN POTASSIUM 50 MG TABLET (FP) PO SCH (10:39)
[2017-02-09] MEDS: methylPREDNISolone NA SUCC 40 MG/1 ML VIAL IVPB SCH (10:40)
[2017-02-09] MEDS: TOPIRAMATE 25 MG TABLET (FP) PO SCH (10:40)
[2017-02-09] MEDS: AMPICILLIN NA/SULBACTAM NA 1.5 GM in SODIUM CHLORIDE 100 ML IVPB SCH ×2 (10:40→14:44)
[2017-02-09] MEDS: VENLAFAXINE HCL 75 MG E.R. CAPSULES (FP) PO SCH (10:40)
[2017-02-09] MEDS ORDERED: INSULIN (NOVOLOG) ASPART 100 UNITS/ML 10ML VIAL ONE (11:51)
[2017-02-09 14:39] VITALS: TEMP 98.1
--- NOTE | 2017-02-09 15:11 | PN ---
Progress Note, Physician History of Present Illness: pulmonary alert,feeling better,-resp distress - Current Medication List Current Medications: Active Medications Albuterol/Ipratropium (Duoneb -) 1 amp NEB Q4H PRN PRN Reason: SHORTNESS OF BREATH Last Admin: 02/08/17 14:20 Dose: 1 amp Amlodipine Besylate (Norvasc -) 10 mg PO DAILY [facility] Last Admin: 02/09/17 10:39 Dose: 10 mg Baclofen (Lioresal -) 10 mg PO TID [facility] Last Admin: 02/09/17 14:42 Dose: 10 mg Carvedilol (Coreg -) 12.5 mg PO BID [facility] Last Admin: 02/09/17 10:39 Dose: 12.5 mg Diphenhydramine HCl (Benadryl -) 25 mg PO HS PRN PRN Reason: INSOMNIA Last Admin: 02/09/17 02:04 Dose: 25 mg Heparin Sodium (Porcine) (Heparin -) 5,000 unit SQ TID [facility] Last Admin: 02/09/17 14:43 Dose: 5,000 unit Ampicillin Sodium/Sulbactam (Sodium 1.5 gm/ Sodium Chloride) 100 mls @ 200 mls/ hr IVPB Q6H-IV [facility] Last Admin: 02/09/17 14:44 Dose: 200 mls/hr Insulin Aspart (Novolog Vial Sliding Scale -) 1 vial SQ TIDAC CALDERON PRN Reason: Protocol Last Admin: 02/09/17 11:52 Dose: 6 units Losartan Potassium (Cozaar -) 100 mg PO DAILY [facility] Last Admin: 02/09/17 10:39 Dose: 100 mg Methylprednisolone Sodium Succinate (Solu-Medrol -) 40 mg IVPB DAILY [facility] Last Admin: 02/09/17 10:40 Dose: 40 mg Pantoprazole Sodium (Protonix -) 40 mg PO DAILY [facility] Last Admin: 02/09/17 10:39 Dose: 40 mg Topiramate (Topamax -) 50 mg PO BID [facility] Last Admin: 02/09/17 10:40 Dose: 50 mg Venlafaxine HCl (Effexor Xr -) 150 mg PO DAILY [facility] Last Admin: 02/09/17 10:40 Dose: 150 mg - Objective Vital Signs: Vital Signs Temperature 98.1 F 02/09/17 14:37 Pulse Rate 87 02/09/17 14:37 Respiratory Rate 16 08/09/17 14:37 Blood Pressure 143/75 02/09/17 14:37 O2 Sat by Pulse Oximetry (%) 96 02/08/17 08:06 Constitutional: Yes: Well Nourished, Calm Eyes: Yes: WNL HENT: Yes: WNL Neck: Yes: WNL Cardiovascular: Yes: Regular Rate and Rhythm, S1, S2 Respiratory: Yes: Rales (few crackles left base) Gastrointestinal: Yes: Normal Bowel Sounds, Soft Extremities: Yes: WNL Edema: No Problem List - Problems (1) GERD (gastroesophageal reflux disease) Code(s): K21.9 - GASTRO-ESOPHAGEAL REFLUX DISEASE WITHOUT ESOPHAGITIS Qualifiers: Esophagitis presence: esophagitis presence not specified Qualified Code(s): K21.9 - Gastro-esophageal reflux disease without esophagitis (2) HTN (hypertension) Code(s): I10 - ESSENTIAL (PRIMARY) HYPERTENSION Qualifiers: Hypertension type: essential hypertension Qualified Code(s): I10 - Essential (primary) hypertension (3) Pneumonia Code(s): J18.9 - PNEUMONIA, UNSPECIFIED ORGANISM Qualifiers: Pneumonia type: due to unspecified organism Laterality: left Lung location: lower lobe of lung Qualified Code(s): J18.1 - Lobar pneumonia, unspecified organism (4) Type 2 diabetes mellitus Code(s): E11.9 - TYPE 2 DIABETES MELLITUS WITHOUT COMPLICATIONS Qualifiers: Diabetes mellitus complication status: with unspecified complications Diabetes mellitus extermination supervisor insulin use: without senior care use Qualified Code(s): E11.8 - Type 2 diabetes mellitus with unspecified complications; Z79.4 - halfway (current) use of insulin (5) Aspiration into lower respiratory tract Code(s): T17.800A - UNSP FOREIGN BODY IN OTH PRT RESP TRACT CAUSING ASPHYX, INIT Assessment/Plan IMP LIKELY ASPIRATION PNEUMONIA LLL GERD CEREBRAL PALSY LIKELY OSAS OBESITY ? HYPER-REACTIVE AIRWAY DM PLAN UNASYN , AUGMENTIN ON DISCHARGE INHALED BRONCHODILATORS SLEEP STUDIES OUTPATIENT PFTS OUTPATIENT D/C STEROIDS DR BRISENO Problem List - Problems (1) GERD (gastroesophageal reflux disease) Code(s): K21.9 - GASTRO-ESOPHAGEAL REFLUX DISEASE WITHOUT ESOPHAGITIS Qualifiers: Esophagitis presence: esophagitis presence not specified Qualified Code(s): K21.9 - Gastro-esophageal reflux disease without esophagitis (2) HTN (hypertension) Code(s): I10 - ESSENTIAL (PRIMARY) HYPERTENSION Qualifiers: Hypertension type: essential hypertension Qualified Code(s): I10 - Essential (primary) hypertension (3) Pneumonia Code(s): J18.9 - PNEUMONIA, UNSPECIFIED ORGANISM Qualifiers: Pneumonia type: due to unspecified organism Laterality: left Lung location: lower lobe of lung Qualified Code(s): J18.1 - Lobar pneumonia, unspecified organism (4) Type 2 diabetes mellitus Code(s): E11.9 - TYPE 2 DIABETES MELLITUS WITHOUT COMPLICATIONS Qualifiers: Diabetes mellitus complication status: with unspecified complications Diabetes mellitus extermination supervisor insulin use: without senior care use Qualified Code(s): E11.8 - Type 2 diabetes mellitus with unspecified complications; Z79.4 - extermination supervisor (current) use of insulin (5) Aspiration into lower respiratory tract Code(s): T17.800A - UNSP FOREIGN BODY IN OTH PRT RESP TRACT CAUSING ASPHYX, INIT
[2017-02-09 17:01] VITALS: BP 132/84; PULSE 85
--- NOTE | 2017-02-09 18:01 | PN ---
Teaching Attending Note Name of Resident: Calderon Loams ATTENDING PHYSICIAN STATEMENT I saw and evaluated the patient. I reviewed the resident's note and discussed the case with the resident. I agree with the resident's findings and plan as documented. SUBJECTIVE: no fever or chills . has no SOB , denies any wheezing . feels much better and feels his breathing is almost at base line OBJECTIVE: NAD , AAOx3 MMM CV: RRR lung s: CTAB , no crackles or wheezes or even prolonged exp phase ext : no edema . laterally deviated feet . with muscle atrophy ASSESSMENT AND PLAN: 56 y/o man with h/o cerebral palsy and GERD who presented after an episode of vomiting and then developed SOB and wheezing. he was found to have pneumonitis 1- Acute aspiration Pneumonitis . Did not develop PNA yet , but at high risk CT with infiltrate on LLL. Acute elevation in WBC is likely due to steroids symptomatically he is doing much better , has no SOB , no fever , and no cough or CP . dc home on Augmentin x 5 days Reactive air ways with wheezing is likely due to the aspiration, dc steroids pt requested inhalers . does not want albuterol . will give combivent and advair briefly PPI for GERD GI f/u
--- NOTE | 2017-02-09 18:28 | DS ---
Physical Exam: SUBJECTIVE: Patient seen and examined, feels much better. Less SOB. Less chest tightness. No fevers, no chills, no CP OBJECTIVE: Vital Signs Period Temp Pulse Resp BP Sys/Ocello Pulse Ox Last 24 Hr 98.1 F-98.6 F 72-94 16-20 122-143/72-84 96 PHYSICAL EXAM GEN: AAOx3, NAD, comfortably breathing HEENT: PERRLA, EOMi, No pharyngeal exudate, no cervical LAD LUNG: Mod inspiratory effort, Crackles in L lung [place], no wheezes CV: S1, S2, RRR, no murmurs ABD: Obese, soft, NT, ND, normoactive BS MSK: 2+ pitting edema on BLLE, no erythema, BLLE spasticity Neuro: CN 2-12 intact, sensation intact in face/body; MSK 5/5; Reflexes 1+ throughout LABS Laboratory Results - last 24 hr 02/08/17 02/09/17 02/09/17 18:36 05:59 06:00 WBC 14.9 H D RBC 5.01 Hgb 13.7 Hct 41.2 MCV 82.2 MCH 27.4 MCHC 33.3 RDW 14.7 Plt Count 147 MPV 8.8 Sodium Potassium Chloride Carbon Dioxide Anion Gap BUN Creatinine POC Glucometer 256 235 Random Glucose Calcium 02/09/17 02/09/17 06:00 11:48 WBC RBC Hgb Hct MCV MCH MCHC RDW Plt Count MPV Sodium 140 Potassium 3.9 Chloride 109 H Carbon Dioxide 22 Anion Gap 9 BUN 25 H Creatinine 1.0 POC Glucometer 275 Random Glucose 233 H D Calcium 8.7 HOSPITAL COURSE: Date of Admission:02/08/17 Date of Discharge: 02/09/17 Pt is a 56yo M with hx of mildly progressing SOB with exertion, recent URI, GERD , and Cerebral palsy (w/ mild bilateral leg spasticity) who presented to the ER with acute onset shortness of breath after aspirating on his acid reflux. He was given breathing treatments and antibiotics in the ER with improvement. # Aspiration Pneumonitis - The patient was treated with IV Levaquin and Flagyl for 2 days, and never mounted a fever during his stay. We discharged him with 7 days of Augmentin PO. We also discharged him with Protonix 40mg daily and he will followup with GI for his GERD. # Asthma Exacerbation - The patient gives a remote history of shortness of breath worsened by allergies, exercise, etc. He presented to the ER with labored breathing and chest tightness, which improved with IV steroids and breathing treatments. PEF improved from 330 to 400 to 440 at discharge. His ideal PEK is 546. Pulmonology saw the patient and recommended discontinuing the steroids. He will be sent home with Advair and a short acting PRN inhaler. # NIDDM - We held the patient's metformin due to recent contrast from CTA. Pt was put on SSI in the hosiptal. Since Hgb A1C was still high on patient's home metformin , we started Januvia along with Metformin at discharge. Hold metformin due to recent contrast from CTA For all other chronic problems, we maintained the patient on his home medications. The patient was aware of the hospital course and agrees with the plan to discharge home Minutes to complete discharge: 55 Discharge Summary Reason For Visit: PNEUMONIA Current Active Problems Aspiration into lower respiratory tract (Acute) Aspiration pneumonitis (Acute) GERD (gastroesophageal reflux disease) (Chronic) HTN (hypertension) (Chronic) Type 2 diabetes mellitus (Chronic) Condition: Improved - Instructions Diet, Activity, Other Instructions: - Please continue your antibiotics: Augmentin 875-125 two times a day for 5 days - use advair twice daily for shortness of breath, also use combivent inhaler ( albutero + ipratropium ) every 6 hours as needed only fro wheezing orshortness of breath - We are prescribing you another medication for your diabetes: Januvia 100mg daily - Please also take your Metformin (start taking it at 8/10 after 5am) - For your reflux, we will send you home with Protonix 40mg daily - We will refer you to a Polish Maker Dr. Fernandez for your acid reflux - We will refer you to a Liturgical Music Director Dr. Hammer for your lungs - Please follow with your Primary Care Doctor: Dr Donaldson - If you have any serious symptoms please return to the ER Referrals: Ashutosh Hammer MD [Staff Physician] - (Outpatient PFTs) Cierra Harvey MD [Staff Physician] - 2 Weeks Carlos Fernandez MD [Staff Physician] - 2 Weeks (GERD evaluation) Disposition: HOME - Home Medications Comprehensive Discharge Medication List: Ambulatory Orders Amlodipine Besylate [Norvasc -] 10 mg PO DAILY 02/08/17 Baclofen 10 mg PO TID 02/08/17 Carvedilol [Coreg -] 12.5 mg PO BID 02/08/17 Losartan Potassium 100 mg PO DAILY 02/08/17 Metformin HCl [Glucophage] 1,000 mg PO BID 02/08/17 Topiramate [Topamax] 50 mg PO BID 02/08/17 Venlafaxine HCl ER [Effexor Xr -] 150 mg PO DAILY 02/08/17 Amoxicillin/Potassium Clav [Augmentin 875-125 Tablet] 1 each PO BID #10 tablet 02/09/17 Ipratropium/Albuterol Sulfate [Combivent Respimat Inhal [place]] 4 gm IH Q6H PRN # 1 aer.w.adap 02/09/17 Pantoprazole Sodium [Protonix -] 40 mg PO DAILY #30 tablet.ec 02/09/17 Salmeterol/Fluticasone [Advair 100Mcg/50Mcg -] 1 inh IH BID #1 inh 02/09/17 Sitagliptin Phosphate [Januvia] 100 mg PO DAILY #30 tablet 02/09/17 This patient is new to me today: No Emergency Visit: No Critical Care patient: No - Discharge Referral Referred to [facility] No
== END 2017-02-09 18:43 | disposition home or self-care (01) | DRG 179 ==
LOC: JER 02:14 → JERBED 06:26 → UNDOADMIN 06:32 → J8W 09:59
PROVIDERS: ADMIT Internal Medicine; ATTEND Internal Medicine
DX: J69.0 Pneumonitis due to inhalation of food and vomit (principal); J45.998 Other asthma; E11.9 Type 2 diabetes mellitus without complications; I10 Essential (primary) hypertension; G80.8 Other cerebral palsy; K21.9 Gastro-esophageal reflux disease without esophagitis; G43.809 Other migraine, not intractable, without status migrainosus; F32.89 Other specified depressive episodes; E66.8 Other obesity; Z68.31 Body mass index [BMI] 31.0-31.9, adult; Z71.3 Dietary counseling and surveillance
CPT/HCPCS: 36415; 71010-TC; 71020-TC; 71275-TC; 80048; 80053; 82803; 83036; 83880; 84484; 85025; 85027; 85379; 93005; 93010; 94010; 94640; 97116-GP; 97161-GP; 99285-25; J0475; J1644

== ENCOUNTER 2017-03-06 08:41 | Emergency (ER) | payer OTHER ==
[2017-03-06 08:47] VITALS: BP 158/77; PULSE 92; TEMP 97.3; BMI 34.2
--- NOTE | 2017-03-06 09:33 | PDOC ---
History of Present Illness - General Chief Complaint: Nasal Bleeding Stated Complaint: NASAL BLEED Time Seen by Provider: 03/06/17 09:02 History Source: Patient Exam Limitations: No Limitations - History of Present Illness Initial Comments: 03/06/17 09:35 My chief complaint: Bleeding from left nostril History of present illness: Patient is a 56-year-old male with a history of hypertension, GERD, sea-lvwnggl-[id number] diabetes, depression, restless leg syndrome and left nasal bleeding in the past that had required cauterization few years ago here today due to a traumatic bleeding from left nostril this morning. Patient denies being on any anticoagulants. Bleeding has stopped patient did not apply pressure to bilateral nostrils. Patient denies blowing his nose recently but does report that he has postnasal drip at times but was told by his neurologist not to take any antihistamines for this issue that it will make his restless legs worse. He does not remember ear nose and throat doctor that he went to to have nostril cauterized. She reports that he had a few nosebleeds since spring. Timing/Duration: resolved prior to arrival Severity: mild Associated Symptoms: reports: denies symptoms Past History - Past Medical History Allergies/Adverse Reactions: Allergies Allergy/AdvReac Type Severity Reaction Status Date / Time aspirin Allergy Verified 03/06/17 08:43 Home Medications: Ambulatory Orders Amlodipine Besylate [Norvasc -] 10 mg PO DAILY 02/08/17 Baclofen 10 mg PO TID 02/08/17 Carvedilol [Coreg -] 12.5 mg PO BID 02/08/17 Losartan Potassium 100 mg PO DAILY 02/08/17 Metformin HCl [Glucophage] 1,000 mg PO BID 02/08/17 Topiramate [Topamax] 50 mg PO BID 02/08/17 Venlafaxine HCl ER [Effexor Xr -] 150 mg PO DAILY 02/08/17 Amoxicillin/Potassium Clav [Augmentin 875-125 Tablet] 1 each PO BID #10 tablet 02/09/17 Ipratropium/Albuterol Sulfate [Combivent Respimat Inhal [place]] 4 gm IH Q6H PRN # 1 aer.w.adap 02/09/17 Pantoprazole Sodium [Protonix -] 40 mg PO DAILY #30 tablet.ec 02/09/17 Salmeterol/Fluticasone [Advair 100Mcg/50Mcg -] 1 inh IH BID #1 inh 02/09/17 Sitagliptin Phosphate [Januvia] 100 mg PO DAILY #30 tablet 02/09/17 CVA: Yes (Cerebral palsy) Diabetes: Yes GI Disorders: Yes (Acid reflux) HTN: Yes - Psycho/Social/Smoking Cessation Hx Suicidal Ideation: No Smoking History: Never smoked Hx Alcohol Use: No Drug/Substance Use Hx: No Substance Use Type: None Review of Systems - Review of Systems Able to Perform ROS?: Yes Constitutional: No: Symptoms Reported HEENTM: Yes: Nose Bleeding (left nostril ) Respiratory: No: Symptoms reported Cardiac (ROS): No: Symptoms Reported Musculoskeletal: No: Symptoms Reported Integumentary: No: Symptoms Reported Neurological: No: Symptoms reported *Physical Exam - Vital Signs Last Vital Signs Temp Pulse Resp BP Pulse Ox 97.3 F L 92 H 19 158/77 96 03/06/17 08:43 03/06/17 08:43 03/06/17 08:43 03/06/17 08:43 03/06/17 08:43 - Physical Exam General Appearance: Yes: Appropriately Dressed HEENT: positive: TMs Normal, Other (left nostril along septum tiny area of minimal bleeding noted, no septal hematoma noted left sided ). negative: Pharyngeal Erythema, Tonsillar Exudate, Tonsillar Erythema, Nasal Congestion, Rhinorrhea Neck: negative: Lymphadenopathy (R), Lymphadenopathy (L) Respiratory/Chest: positive: Lungs Clear, Normal Breath Sounds. negative: Chest Tender, Respiratory Distress Cardiovascular: positive: Regular Rhythm, Regular Rate, S1, S2 Integumentary: positive: Normal Color Neurologic: positive: Alert, Normal Response, Responsive Procedures - Consent Consent obtained: From Patient - Additional Procedures Progress: 03/06/17 09:35 silver nitrate applied to tiny area of minimal active bleeding left nasal septum Medical Decision Making - Medical Decision Making 03/06/17 09:37 Patient is a 56-year-old male with a history of hypertension, GERD, non-insulin -dependent diabetes, depression, restless leg syndrome and left nasal bleeding in the past that had required cauterization few years ago here today due to a traumatic bleeding from left nostril this morning. Patient denies being on any anticoagulants. Bleeding has stopped patient did not apply pressure to bilateral nostrils. Patient denies blowing his nose recently but does report that he has postnasal drip at times but was told by his neurologist not to take any antihistamines for this issue that it will make his restless legs worse. He does not remember ear nose and throat doctor that he went to to have nostril cauterized. He reports that he had a few nosebleeds since spring. Nasal bleeding left nasal septum PLAN: silver Nitrate applied to tiny area left nasal septum at site where bleed had occurred no further bleeding noted Follow-up with ear nose and throat as soon as possible *DC/Admit/Observation/Transfer Diagnosis at time of Disposition: Epistaxis not due to trauma - Discharge Dispostion Disposition: HOME Condition at time of disposition: Stable - Referrals Referrals: Cierra Harvey MD [Primary Care Provider] - Damian Hamilton MD [Staff Physician] - - Patient Instructions Additional Instructions: Follow-up with ear nose and throat Dr. Hamilton as soon as possible for further evaluation and treatment If nasal bleeding reoccurs apply pressure equally temp bilateral nostrils upper area do not go of pressure for at least 15 minutes Return to emergency room if nasal bleeding does not stop or reoccurs frequently Patient voiced understanding of discharge instructions and all questions were answered
== END 2017-03-06 09:51 | disposition home or self-care (01) ==
LOC: JERFT 08:41
PROC: 0W3Q7ZZ Control Bleeding in Respiratory Tract, Via Natural or Artificial Opening (ICD-10-PCS; principal; 2017-03-06)
DX: R04.0 Epistaxis (principal); I10 Essential (primary) hypertension; E11.9 Type 2 diabetes mellitus without complications; Z79.84 Long term (current) use of oral hypoglycemic drugs; K21.9 Gastro-esophageal reflux disease without esophagitis; F32.9 Major depressive disorder, single episode, unspecified
CPT/HCPCS: 99281-25

== ENCOUNTER 2017-12-15 00:41 | Observation (INO) | payer OTHER ==
[2017-12-15 00:48] VITALS: BMI 28.8
--- NOTE | 2017-12-15 00:48 | PDOC ---
History of Present Illness - General Chief Complaint: Wound Stated Complaint: WOUND LLL Time Seen by Provider: 12/15/17 00:48 History Source: Patient Exam Limitations: No Limitations - History of Present Illness Initial Comments: 12/15/17 00:53 This is a 57-year-old male with history of hypertension, high cholesterol and type 2 diabetes who comes in complaining of redness and increased pain and swelling in his left lower extremity. Patient has had progressive symptoms times approximately one week and made him come in K she was concerned it may be infected. Patient said he has had a low-grade fever but was afebrile here in the emergency room. Patient is otherwise without complaints. PAST MEDICAL HISTORY: no significant history PAST SURGICAL HISTORY: no significant history FAMILY HISTORY: no pertinant history SOCIAL HISTORY: Pt lives with family and is employed. MEDICATIONS: reviewed ALLERGIES: As per nursing notes Review of Systems General: No fevers or chills, no weakness, no weight loss HEENT: No change in vision. No sore throat,. No ear pain CardioVascular: No chest pain or shortness of breath Respiratory:No cough, or wheezing. Gastrointestinal: no nausea, vomitting, diarrhea or constipation, No rectal bleeding Genitourinary: No dysuria, hematuria, or frequency Musculoskeletal: No joint or muscle pain or swelling Neurologic: No headache, vertigo, dizziness or loss of consciousness Psychiatric: nor depression Skin: No rashes or easy bruising Endocrine: no increased thirst or abnormal weight change Allergic: no skin or latex allergy All other systems reviewed and normal Exam: General: Well-nourished well-developed individual, no acute distress HEENT: Throat: Normal, tonsils normal, no erythema or exudate Neck: Supple, no meningeal signs, no lymphadenopathy Eyes::Pupils equal reactive and round, extraocular motion intact Chest: Nontender to palpation Cardiac: S1-S2 normal, regular rate and rhythm, no murmurs rubs or gallops Respiratory: Lungs clear to auscultation bilateral Abdomen: Soft, nondistended, normal bowel sounds, nontender to palpation diffusely Extremities: Left lower extremity below the knee there is increased redness, swelling and an area of excoriation with discharge. Neurovascular distal is intact. Skin: No rashes Neuro: Alert and oriented x3, CN II - XII intact, nonfocal exam with normal strength, normal sensation, normal reflexes, normal gait, Psych: Normal mood and affect Past History - Past Medical History Allergies/Adverse Reactions: Allergies Allergy/AdvReac Type Severity Reaction Status Date / Time aspirin Allergy Verified 03/06/17 08:43 Home Medications: Ambulatory Orders Amlodipine Besylate [Norvasc -] 10 mg PO DAILY 02/08/17 Baclofen 10 mg PO TID 02/08/17 Carvedilol [Coreg -] 12.5 mg PO BID 02/08/17 Losartan Potassium 100 mg PO DAILY 02/08/17 Metformin HCl [Glucophage] 1,000 mg PO BID 02/08/17 Topiramate [Topamax] 50 mg PO BID 02/08/17 Venlafaxine HCl ER [Effexor Xr -] 150 mg PO DAILY 02/08/17 Ipratropium/Albuterol Sulfate [Combivent Respimat 20-100 Mcg] 4 gm IH Q6H PRN # 1 aer.w.adap 02/09/17 Pantoprazole Sodium [Protonix -] 40 mg PO DAILY #30 tablet.ec 02/09/17 Salmeterol/Fluticasone [Advair 100Mcg/50Mcg -] 1 inh IH BID #1 inh 02/09/17 Sitagliptin Phosphate [Januvia] 100 mg PO DAILY #30 tablet 02/09/17 Cephalexin [Keflex] 500 mg PO QID #28 capsule 12/16/17 Mupirocin Ointment [Bactroban 2% Ointment -] 1 applic TP BID #1 applic 12/16/17 CVA: Yes (Cerebral palsy) COPD: No Diabetes: Yes GI Disorders: Yes (Acid reflux) HTN: Yes - Suicide/Smoking/Psychosocial Hx Smoking History: Never smoked Have you smoked in the past 12 months: No Number of Cigarettes Smoked Daily: 0 Information on smoking cessation initiated: No Hx Alcohol Use: No Drug/Substance Use Hx: No Substance Use Type: None *Physical Exam - Vital Signs Last Vital Signs Temp Pulse Resp BP Pulse Ox 98.3 F 100 H 14 128/93 98 12/15/17 00:44 12/15/17 00:44 12/15/17 00:44 12/15/17 00:44 12/15/17 00:44 ED Treatment Course - LABORATORY CBC & Chemistry Diagram: 12/15/17 01:34 12/15/17 00:51 *DC/Admit/Observation/Transfer Diagnosis at time of Disposition: Cellulitis Qualifiers: Site of cellulitis: extremity Site of cellulitis of extremity: lower extremity Laterality: right Qualified Code(s): L03.115 - Cellulitis of right lower limb - Discharge Dispostion Condition at time of disposition: Good Decision to Admit order: Yes - Prescriptions - Referrals - Patient Instructions - Post Discharge Activity
[2017-12-15] MEDS ORDERED: PIPERACILLIN/TAZOB 4.5 GM 4.5 GM in DEXTROSE 5%-WATER 100 ML IVPB ONE ×2 (00:55→10:15)
[2017-12-15] MEDS ORDERED: VANCOMYCIN 1 GRAM (PRE-DOCKED) 1,000 MG/250 ML BAG IVPB ONE (00:55)
[2017-12-15] MEDS ORDERED: PIPERACILLIN/TAZOBACTAM 4.5 GM VIAL IVPB ONE (02:28)
[2017-12-15] MEDS ORDERED: VANCOMYCIN 1,000 MG VIAL (RESTRICTED TO ID ONLY) ONE (02:29)
[2017-12-15] MEDS ORDERED: PATIENT'S OWN MEDICATION (NON-FORMULARY) (Ipratropium/Albuterol Sulfate [Combivent Respima IH PRN (09:18)
--- NOTE | 2017-12-15 09:40 | HP ---
CHIEF COMPLAINT: left lower extremity redness PCP: Dr Ascencio HISTORY OF PRESENT ILLNESS: Patient Is a 57-year-old obese, male With a past medical history of hypertension,diabetes, copd and cerebal palsy. Patient reports redness, pain and itching to the left lower extremity for the past week. Patient reports the itching began 1 week ago and he First attributed his symptoms to An ALLERGY, however he noted the redness was increasing within the past week. Patient does report an increase of pain upon bearing weight onto the left lower extremity. Patient denies any paresthesia the extremity. He denies any recent trauma. ER course was notable for: (1)wbc 7.8 (2)temp 98.3 Recent Travel: none PAST MEDICAL HISTORY: see hpi PAST SURGICAL HISTORY: none Social History: resides at home with Smoking:none Alcohol:none Drugs: none Family History: non contributory to this admission Allergies aspirin Allergy (Verified 03/06/17 08:43) HOME MEDICATIONS: Home Medications Medication Instructions Recorded Amlodipine Besylate [Norvasc -] 10 mg PO DAILY 02/08/17 Baclofen 10 mg PO TID 02/08/17 Carvedilol [Coreg -] 12.5 mg PO BID 02/08/17 Losartan Potassium 100 mg PO DAILY 02/08/17 Metformin HCl [Glucophage] 1,000 mg PO BID 02/08/17 Topiramate [Topamax] 50 mg PO BID 02/08/17 Venlafaxine HCl ER [Effexor Xr -] 150 mg PO DAILY 02/08/17 Ipratropium/Albuterol Sulfate 4 gm IH Q6H PRN #1 aer.w.adap 02/09/17 [Combivent Respimat Inhal [place]] Pantoprazole Sodium [Protonix -] 40 mg PO DAILY #30 tablet.ec 02/09/17 Salmeterol/Fluticasone [Advair 1 inh IH BID #1 inh 02/09/17 100Mcg/50Mcg -] Sitagliptin Phosphate [Januvia] 100 mg PO DAILY #30 tablet 02/09/17 REVIEW OF SYSTEMS CONSTITUTIONAL: Absent: fever, chills, diaphoresis, generalized weakness, malaise, loss of appetite, weight change HEENT: Absent: rhinorrhea, nasal congestion, throat pain, throat swelling, difficulty swallowing, mouth swelling, ear pain, eye pain, visual changes CARDIOVASCULAR: Absent: chest pain, syncope, palpitations, irregular heart rate, lightheadedness , peripheral edema RESPIRATORY: Absent: cough, shortness of breath, dyspnea with exertion, orthopnea, wheezing, stridor, hemoptysis GASTROINTESTINAL: Absent: abdominal pain, abdominal distension, nausea, vomiting, diarrhea, constipation, melena, hematochezia GENITOURINARY: Absent: dysuria, frequency, urgency, hesitancy, hematuria, flank pain, genital pain MUSCULOSKELETAL: Present:non Absent: myalgia, arthralgia, joint swelling, back pain, neck pain SKIN: Absent: rash, itching, pallor HEMATOLOGIC/IMMUNOLOGIC: Absent: easy bleeding, easy bruising, lymphadenopathy, frequent infections ENDOCRINE: Absent: unexplained weight gain, unexplained weight loss, heat intolerance, cold intolerance NEUROLOGIC: Absent: headache, focal weakness or paresthesias, dizziness, unsteady gait, seizure, mental status changes, bladder or bowel incontinence PSYCHIATRIC: Absent: anxiety, depression, suicidal or homicidal ideation, hallucinations. PHYSICAL EXAMINATION Vital Signs - 24 hr 12/15/17 00:44 Temperature 98.3 F Pulse Rate 100 H Respiratory 14 Rate Blood Pressure 128/93 O2 Sat by Pulse 98 Oximetry (%) GENERAL: Awake, alert, and fully oriented, in no acute distress. HEAD: Normal with no signs of trauma. EYES: Pupils equal, round and reactive to light, extraocular movements intact, sclera anicteric, conjunctiva clear. No lid lag. EARS, NOSE, THROAT: Ears normal, nares patent, oropharynx clear without exudates. Moist mucous membranes. NECK: Normal range of motion, supple without lymphadenopathy, JVD, or masses. LUNGS: Breath sounds equal, clear to auscultation bilaterally. No wheezes, and no crackles. No accessory muscle use. HEART: Regular rate and rhythm, normal S1 and S2 without murmur, rub or gallop. ABDOMEN: Soft, nontender, not distended, normoactive bowel sounds, no guarding, no rebound, no masses. No hepatomegaly or splenomegaly. MUSCULOSKELETAL: Normal range of motion at all joints. No bony deformities or tenderness. No CVA tenderness. UPPER EXTREMITIES: 2+ pulses, warm, well-perfused. No cyanosis. No clubbing. No peripheral edema. LOWER EXTREMITIES: 2+ pulses, warm, well-perfused. No calf tenderness, +1 edema bilaterally, bilateral venous changes, 3 cm area of denuded skin noted to the left distal posterior lower extremity, circumferential edema noted to the left distal lower extremity. NEUROLOGICAL: Cranial nerves II-XII intact. Normal speech. Normal gait. PSYCHIATRIC: Cooperative. Good eye contact. Appropriate mood and affect. SKIN: Warm, dry, normal turgor, no rashes or lesions noted, normal capillary refill. Laboratory Results - last 24 hr 12/15/17 07:42 POC Glucometer 88 ASSESSMENT/PLAN: 1) ID Cellulitis of Left lower extremity - Discussed with infectious disease physician Dr. Carlos at that site start cefazolin 2 g IV every 8 hours - Follow-up blood cultures - No leukocytosis noted trend WBCs and fever curve - ultrasound of bilateral lower extremities ordered - oncyhmois noted to bilateral toenails appreciated podiatry input 2) cardiovascular hypertension - Continue losartan Coreg and Norvasc, blood pressure goal - sttict BP monitoring every 4 hours Venous insufficiency - Pending ultrasound of bilateral lower extremities. - Edema noted on exam may be secondary to Norvasc pending BNP An chest x-ray - Appreciate vascular input 3) endo dm - pending hgb a1c, continue metformin and januvia 4) pulm copd no acute excerbation at this time, continue Advair with albuterol when necessary f/e/n - ow sodium diabetic diet - replete electrolytes prn ppx - oob - lovoenox - physical therapy dispo: pt requires obsv admission Visit type - Emergency Visit Emergency Visit: Yes ED Registration Date: 12/15/17 Care time: The patient presented to the Emergency Department on the above date and was hospitalized for further evaluation of their emergent condition. - New Patient This patient is new to me today: Yes Date on this admission: 12/16/17 - Critical Care Critical Care patient: No Hospitalist Screening - Colonoscopy Questionnaire Colonoscopy Questionnaire: Colonoscopy Questionnaire - Patient: 50 - 75 years old and never had a screening colonoscopy: No History of colon or rectal polyps, or CA: No History of IBD, Crohn's disease or UC: No History of abdominal radiation therapy as a child: No - Relative: 1 with colon or rectal CA, or polyps at age 60 or younger: No Colon or rectal CA diagnosed at age 45 or younger: No Multiple relatives with colon or rectal CA: No - Outcome: Screening Result: Negative Screen
[2017-12-15] MEDS ORDERED: sitaGLIPtin PHOSPHATE 100 MG TABLET (FP) PO SCH (10:00)
[2017-12-15 10:15] LABS: ALBUMIN 3.8 g/dl (3.4-5.0); ALK PHOS 84 U/L (45-117); ANION GAP 9 (8-16); BILIRUBIN,TOTAL 0.4 mg/dL (0.2-1.0); BLOOD UREA NITROGEN 23 mg/dL (7-18); CALCIUM 9.1 mg/dL (8.5-10.1); CHLORIDE 107 mmol/L (98-107); CO2 26 mmol/L (21-32); GLUCOSE,RANDOM 141 mg/dL (74-106); POTASSIUM 3.7 mmol/L (3.5-5.1); SGOT/AST 17 U/L (15-37); SGPT/ALT 36 U/L (12-78); SODIUM 142 mmol/L (136-145); TOT PROT 7.4 g/dl (6.4-8.2)
[2017-12-15] MEDS ORDERED: sitaGLIPtin PHOSPHATE 50 MG TABLET PO SCH (10:25)
--- NOTE | 2017-12-15 11:07 | PN ---
Progress Note (short form) - Note Progress Note: ID Consult dictated Cellulitis L LE Diabetes mellitus Pending c/s empiric cefazolin 2gm q8h
--- NOTE | 2017-12-15 11:13 | EKG ---
Test Reason : Blood Pressure : / mmHG Vent. Rate : 083 BPM Atrial Rate : 083 BPM P-R Int : 166 ms QRS Dur : 102 ms QT Int : 368 ms P-R-T Axes : 041 -11 027 degrees QTc Int : 432 ms NORMAL SINUS RHYTHM INFERIOR INFARCT , AGE UNDETERMINED ABNORMAL ECG WHEN COMPARED WITH ECG OF 08-FEB-2017 02:38, INFERIOR INFARCT IS NOW PRESENT Confirmed by CHARLEY ASTORGA MD ([id number]) on 12/15/2017 11:13:28 AM Referred By: MD GOFF Confirmed By:CHARLEY ASTORGA MD
[2017-12-15] MEDS: TOPIRAMATE 25 MG TABLET (FP) PO SCH ×2 (11:32→21:28)
[2017-12-15] MEDS: amLODIPine BESYLATE 10 MG TABLET (FP) PO SCH (11:32)
[2017-12-15] MEDS: PANTOPRAZOLE 40 MG TABLET (FP) PO SCH (11:33)
[2017-12-15] MEDS: VENLAFAXINE HCL 150 MG E.R. CAPSULE PO SCH (11:33)
[2017-12-15] MEDS: LOSARTAN POTASSIUM 50 MG TABLET (FP) PO SCH (11:34)
[2017-12-15] MEDS: FLUTICASONE/SALMETEROL 100 MCG/50 MCG DISKUS IH SCH ×2 (11:34→21:28)
[2017-12-15] MEDS: CARVEDILOL 12.5 MG TABLET (FP) PO SCH ×2 (11:34→21:27)
[2017-12-15 11:49] LABS: BASO % 0.4 % (0-2.0); EOS % 4.3 % (0-4.5); HEMATOCRIT 43.6 % (35.4-49); HEMOGLOBIN 14.7 GM/dL (11.7-16.9); LYMPH % 33.1 % (8-40); MCH 28.1 pg (25.7-33.7); MCHC 33.7 g/dl (32.0-35.9); MEAN CELL VOLUME 83.4 fl (80-96); MEAN PLT VOLUME 9.3 fl (7.5-11.1); MONO % 9.5 % (3.8-10.2); NEUT % 52.7 % (42.8-82.8); PLATELET COUNT 164 K/MM3 (134-434); RBC 5.23 M/mm3 (4.00-5.60); RDW 14.3 % (11.9-15.9); WHITE BLOOD COUNT 7.8 K/mm3 (4.0-10.0)
--- NOTE | 2017-12-15 11:51 | CONS ---
INFECTIOUS DISEASE CONSULTATION DATE OF CONSULTATION: 12/15/2017 The patient is a 57-year-old male with a history of diabetes mellitus and cerebral palsy, evaluated for cellulitis of the left lower extremity. Patient reports that he had developed pruritus of the lower extremities bilaterally which he attributed to pets at home. He developed worsening erythema, warmth, and swelling of the left lower extremity, as well as low-grade fever. He presented to the hospital where he was found to have cellulitis of the left leg. He was empirically treated with vancomycin and Zosyn. He denies any traumatic injury other than scratching the leg. No reported insect or animal bites or scratches. He denies prior history of serious soft tissue infection requiring hospitalization or history of MRSA. PAST MEDICAL HISTORY: Positive for hypertension, hyperlipidemia, diabetes mellitus, gastroesophageal reflux, cerebral palsy. ALLERGIES: ASPIRIN. MEDICATIONS: Norvasc, baclofen, Coreg, losartan, Glucophage, Topamax, Effexor, Protonix, Advair, Januvia. SOCIAL HISTORY: Lives at home with family members. Nonsmoker. Nondrinker. SYSTEMS REVIEW: Neurologic: No loss of consciousness, seizure activity, focal weakness. Cardiac: Negative chest pain and palpitations. Respiratory: Negative cough or sputum production. Gastrointestinal: Negative vomiting or diarrhea. Genitourinary: Negative for urinary tract infection. LABORATORY DATA: White blood cell count is pending. BUN 23, creatinine 1.0. Blood and wound cultures are pending. PHYSICAL EXAMINATION: General: He is awake and alert. He is not acutely toxic appearing. Vital Signs: Temperature 98.3; blood pressure 128/93; pulse 101, regular; respirations 24 per minute. HEENT: Sclerae are anicteric. Heart: Sounds S1, S2. Lungs: Clear. Abdomen: Soft, nontender. Lower Extremities: Bilateral lower extremity edema, 1+. Confluent erythema and warmth present at the left lower extremity from the mid-tibial area to the ankle. Warm to touch. There is a superficial ulceration on the calf area with serous drainage. No purulent drainage. No crepitus or fluctuance. No lymphangitic streaking. There are what appear to be scratches present on the distal right lower extremity. IMPRESSION: 1. Cellulitis, lower extremity. 2. Diabetes mellitus. 3. Cerebral palsy. Await blood and wound culture results. Empiric antibiotic coverage with cefazolin 2 g IV piggyback every 8 hours, with elevation and analgesics. Will follow. Thank you for the kind referral. OSCAR WINSTON M.D. GUILLERMO/[id number]
[2017-12-15] MEDS ORDERED: VANCOMYCIN 1 GM PREMIX - 1 GM/200 ML BAG IVPB ONE (12:00)
[2017-12-15] MEDS ORDERED: PIPERACILLIN/TAZOB 4.5 GM 4.5 GM/100 ML BAG IVPB SCH (15:00)
[2017-12-15] MEDS: CEFAZOLIN 2 GM/D5W 2 GM/50 ML ML IVPB SCH (17:41)
[2017-12-15] MEDS ORDERED: PIPERACILLIN/TAZOB 4.5 GM 4.5 GM in DEXTROSE 5%-WATER 100 ML IVPB SCH (18:00)
[2017-12-15] MEDS ORDERED: PT OWN MED DRAWER 7, Y5N ONE (21:21)
[2017-12-16] MEDS ORDERED: VANCOMYCIN 1 GRAM (PRE-DOCKED) 1,000 MG/250 ML BAG IVPB SCH
[2017-12-16] MEDS ORDERED: VANCOMYCIN 1 GM PREMIX - 1 GM/200 ML BAG IVPB SCH
[2017-12-16] MEDS: CEFAZOLIN 2 GM/D5W 2 GM/50 ML ML IVPB SCH ×2 (01:17→10:35)
[2017-12-16] MEDS ORDERED: ENOXAPARIN NA (PORCINE) 40 MG/0.4 ML DISP.SYRIN SQ SCH (10:00)
--- NOTE | 2017-12-16 10:13 | PN ---
Progress Note, Physician History of Present Illness: Feeling better C/O pruritis L > R LE No c/o LE pain No fever/ chills Tolerating antibiotics - Current Medication List Current Medications: Active Medications Piperacillin Sod/Tazobactam (Sod 4.5 gm/ Dextrose) 100 mls @ 200 mls/hr IVPB ONCE ONE; Protocol Stop: 12/15/17 01:24 Last Admin: 12/15/17 21:26 Dose: Not Given - Objective Vital Signs: Vital Signs Temperature 97.5 F L 12/16/17 05:00 Pulse Rate 74 12/16/17 05:00 Respiratory Rate 18 12/16/17 09:07 Blood Pressure 140/81 12/16/17 05:00 O2 Sat by Pulse Oximetry (%) 94 L 12/16/17 09:07 Constitutional: Yes: No Distress Eyes: Yes: Conjunctiva Clear Cardiovascular: Yes: Regular Rate and Rhythm, S1, S2 Respiratory: Yes: CTA Bilaterally Gastrointestinal: Yes: Normal Bowel Sounds, Soft. No: Tenderness Extremities: Yes: Other (decreased erythema/ swelling L LE) Labs: CBC, BMP 12/15/17 01:34 12/15/17 00:51 Assessment/Plan Cellulitis L LE Clinically improved Substitute keflex 500mg po q6h x 7d
[2017-12-16] MEDS ORDERED: PT OWN MED DRAWER 7, Y5N ONE ×2 (10:18→13:19)
[2017-12-16] MEDS: VENLAFAXINE HCL 150 MG E.R. CAPSULE PO SCH (10:33)
[2017-12-16] MEDS: LOSARTAN POTASSIUM 50 MG TABLET (FP) PO SCH (10:33)
[2017-12-16] MEDS: CARVEDILOL 12.5 MG TABLET (FP) PO SCH (10:33)
[2017-12-16] MEDS: amLODIPine BESYLATE 10 MG TABLET (FP) PO SCH (10:34)
[2017-12-16] MEDS: PANTOPRAZOLE 40 MG TABLET (FP) PO SCH (10:34)
[2017-12-16] MEDS: TOPIRAMATE 25 MG TABLET (FP) PO SCH (10:34)
[2017-12-16] MEDS: FLUTICASONE/SALMETEROL 100 MCG/50 MCG DISKUS IH SCH (10:35)
--- NOTE | 2017-12-16 11:10 | DS ---
Physical Exam: SUBJECTIVE: Patient seen and examined, patient is ambulatory at bedside, denies any pain to the left lower extremity. OBJECTIVE:: Patient Is a 57-year-old obese, male With a past medical history of hypertension,diabetes, copd and cerebal palsy. Patient reports redness, pain and itching to the left lower extremity for the past week. Patient reports the itching began 1 week ago and he First attributed his symptoms to An ALLERGY, however he noted the redness was increasing within the past week. Patient does report an increase of pain upon bearing weight onto the left lower extremity. Patient denies any paresthesia the extremity. He denies any recent trauma. ER course was notable for: (1)wbc 7.8 (2)temp 98.3 Vital Signs Period Temp Pulse Resp BP Sys/Coello Pulse Ox Last 24 Hr 97.5 F-98.4 F 72-78 18-19 140-156/80-84 94-95 PHYSICAL EXAM GENERAL: Awake, alert, and fully oriented, in no acute distress. HEAD: Normal with no signs of trauma. EYES: Pupils equal, round and reactive to light, extraocular movements intact, sclera anicteric, conjunctiva clear. No lid lag. EARS, NOSE, THROAT: Ears normal, nares patent, oropharynx clear without exudates. Moist mucous membranes. NECK: Normal range of motion, supple without lymphadenopathy, JVD, or masses. LUNGS: Breath sounds equal, clear to auscultation bilaterally. No wheezes, and no crackles. No accessory muscle use. HEART: Regular rate and rhythm, normal S1 and S2 without murmur, rub or gallop. ABDOMEN: Soft, nontender, not distended, normoactive bowel sounds, no guarding, no rebound, no masses. No hepatomegaly or splenomegaly. MUSCULOSKELETAL: Normal range of motion at all joints. No bony deformities or tenderness. No CVA tenderness. UPPER EXTREMITIES: 2+ pulses, warm, well-perfused. No cyanosis. No clubbing. No peripheral edema. LOWER EXTREMITIES: 2+ pulses, warm, well-perfused. No calf tenderness, trace edema bilaterally, bilateral venous changes, 3 cm area of denuded skin noted to the left distal posterior lower extremity, Scant erythema noted noted to the left distal lower extremity. NEUROLOGICAL: Cranial nerves II-XII intact. Normal speech. Normal gait. PSYCHIATRIC: Cooperative. Good eye contact. Appropriate mood and affect. SKIN: onchymosis noted to bilateral toenails, warrm, dry, normal turgor, no rashes or lesions noted, normal capillary refill. LABS Laboratory Results - last 24 hr 12/15/17 12/15/17 12/15/17 01:34 11:55 16:52 WBC 7.8 D RBC 5.23 Hgb 14.7 Hct 43.6 MCV 83.4 MCH 28.1 MCHC 33.7 RDW 14.3 Plt Count 164 MPV 9.3 Absolute Neuts (auto) 4.1 Neutrophils % 52.7 Lymphocytes % 33.1 Monocytes % 9.5 Eosinophils % 4.3 D Basophils % 0.4 Nucleated RBC % 0 POC Glucometer 139 107 12/15/17 12/16/17 21:14 06:11 WBC RBC Hgb Hct MCV MCH MCHC RDW Plt Count MPV Absolute Neuts (auto) Neutrophils % Lymphocytes % Monocytes % Eosinophils % Basophils % Nucleated RBC % POC Glucometer 115 112 Microbiology 12/15/17 00:59 Leg - Left Lower Gram Stain - Final 12/15/17 00:59 Leg - Left Lower Wound Culture - Preliminary Staphylococcus Latex Coag Pos 12/15/17 01:05 Blood - Peripheral Venous Blood Culture - Preliminary NO GROWTH OBTAINED AFTER 24 HOURS, INCUBATION TO CONTINUE FOR 4 DAYS. HOSPITAL COURSE: 1) Cellulitis of Left lower extremity - in Collaboration n with the infectious disease physician, Dr. Carlos, Patient was treated with cefazolin 2 g IV every 8 hour - Blood cultures negative to date. - No leukocytosis noted patient remained afebrile throughout admissione - ultrasound of bilateral lower extremities No DVT noted - oncyhmois noted to bilateral toenails appreciated podiatry input 2) cardiovascular hypertension - Continue losartan Coreg and Norvasc, blood pressure goal Venous insufficiency - ultrasound of bilateral lower extremities noted as above - pt will require outpatient follow up with vascular surgeon 3) endo dm - continue metformin and januvia 4) pulm copd no acute excerbation at this time, continue Advair with albuterol when necessary PLAN - discharge home with Keflex Date of Admission:12/15/17 Date of Discharge: 12/16/17 Minutes to complete discharge: 45 Discharge Summary Reason For Visit: CELLULITIS Condition: Good - Instructions Diet, Activity, Other Instructions: resume low sodium diabetic diet Continue Keflex every 6 hours for the next 7 days Apply Bactroban ointment to wound twice a day elevate extremity as much as possible throughout the day. Please follow-up with your primary care physician Dr. Mendoza Blanca within 1 week please follow up with the concrete swimming pool installer within 2 weeks If any new or persistent symptoms develop please return to emergency department Referrals: Cierra Harvey MD [Primary Care Provider] - Sergo Miller MD [Staff Physician] - 3 Weeks Vik Conde DPM [Staff Physician] - 2 Weeks Disposition: HOME - Home Medications Comprehensive Discharge Medication List: Ambulatory Orders Amlodipine Besylate [Norvasc -] 10 mg PO DAILY 02/08/17 Baclofen 10 mg PO TID 02/08/17 Carvedilol [Coreg -] 12.5 mg PO BID 02/08/17 Losartan Potassium 100 mg PO DAILY 02/08/17 Metformin HCl [Glucophage] 1,000 mg PO BID 02/08/17 Topiramate [Topamax] 50 mg PO BID 02/08/17 Venlafaxine HCl ER [Effexor Xr -] 150 mg PO DAILY 02/08/17 Ipratropium/Albuterol Sulfate [Combivent Respimat Inhal Zavalla] 4 gm IH Q6H PRN # 1 aer.w.adap 02/09/17 Pantoprazole Sodium [Protonix -] 40 mg PO DAILY #30 tablet.ec 02/09/17 Salmeterol/Fluticasone [Advair 100Mcg/50Mcg -] 1 inh IH BID #1 inh 02/09/17 Sitagliptin Phosphate [Januvia] 100 mg PO DAILY #30 tablet 02/09/17 This patient is new to me today: No Emergency Visit: Yes ED Registration Date: 12/15/17 Care time: The patient presented to the Emergency Department on the above date and was hospitalized for further evaluation of their emergent condition. Critical Care patient: No - Discharge Referral Referred to [facility] Med [facility].C[facility] Yes Physician Referral: Cierra Harvey MD ([facility])
[2017-12-16] MEDS ORDERED: MUPIROCIN 2% TOPICAL OINTMENT 22 GM TUBE TP SCH (11:15)
[2017-12-16] MEDS ORDERED: BACLOFEN 10 MG TABLET (FP) PO SCH (14:00)
--- NOTE | 2017-12-16 14:01 | CONSULT ---
Consult - Alcohol/Substance Use Hx Alcohol Use: No - Smoking History Smoking history: Never smoked Have you smoked in the past 12 months: No Aproximately how many cigarettes per day: 0 Home Medications - Allergies Allergies/Adverse Reactions: Allergies Allergy/AdvReac Type Severity Reaction Status Date / Time aspirin Allergy Verified 03/06/17 08:43 - Home Medications Home Medications: Ambulatory Orders Amlodipine Besylate [Norvasc -] 10 mg PO DAILY 02/08/17 Baclofen 10 mg PO TID 02/08/17 Carvedilol [Coreg -] 12.5 mg PO BID 02/08/17 Losartan Potassium 100 mg PO DAILY 02/08/17 Metformin HCl [Glucophage] 1,000 mg PO BID 02/08/17 Topiramate [Topamax] 50 mg PO BID 02/08/17 Venlafaxine HCl ER [Effexor Xr -] 150 mg PO DAILY 02/08/17 Ipratropium/Albuterol Sulfate [Combivent Respimat 20-100 Mcg] 4 gm IH Q6H PRN # 1 aer.w.adap 02/09/17 Pantoprazole Sodium [Protonix -] 40 mg PO DAILY #30 tablet.ec 02/09/17 Salmeterol/Fluticasone [Advair 100Mcg/50Mcg -] 1 inh IH BID #1 inh 02/09/17 Sitagliptin Phosphate [Januvia] 100 mg PO DAILY #30 tablet 02/09/17 Cephalexin [Keflex] 500 mg PO QID #28 capsule 12/16/17 Mupirocin Ointment [Bactroban 2% Ointment -] 1 applic TP BID #1 applic 12/16/17 Physical Exam Vital Signs: Vital Signs Temperature 97.5 F L 12/16/17 05:00 Pulse Rate 74 12/16/17 05:00 Respiratory Rate 18 12/16/17 09:07 Blood Pressure 140/81 12/16/17 05:00 O2 Sat by Pulse Oximetry (%) 94 L 12/16/17 09:07 Labs: CBC, BMP 12/15/17 01:34 12/15/17 00:51 Assessment/Plan Patient presents with painful thick dystrophic mycotic toenails The big toenails are slightly ingrown. Patient is also a diabetic. Patient has subungual dedrie present as as well as an inflamed nails beds. Patient has not cut his nails in a long time. 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 Patient advised about proper shoe care. Nails 1-10 were bedrided and filed . Patient advised to come to the office in 2 months for nail debidement.
[2017-12-16 14:56] VITALS: BP 132/78; PULSE 79; TEMP 98.7
[2017-12-16] MEDS ORDERED: metFORMIN HCL 500 MG TABLET (FP) PO SCH (16:30)
== END 2017-12-16 16:45 | disposition home or self-care (01) ==
LOC: FER 00:41 → INTOOBSV 02:30 → FM/S 02:30 → UNDOADMOB 02:30 → FM/S 11:38
PROVIDERS: ADMIT Internal Medicine; ATTEND Nurse Practitioner Family
DX: L03.116 Cellulitis of left lower limb (principal); I10 Essential (primary) hypertension; I87.2 Venous insufficiency (chronic) (peripheral); E11.9 Type 2 diabetes mellitus without complications; E78.5 Hyperlipidemia, unspecified; K21.9 Gastro-esophageal reflux disease without esophagitis; G80.9 Cerebral palsy, unspecified; J44.9 Chronic obstructive pulmonary disease, unspecified; Z79.84 Long term (current) use of oral hypoglycemic drugs; E66.9 Obesity, unspecified; Z68.28 Body mass index [BMI] 28.0-28.9, adult
CPT/HCPCS: 36415; 71045-TC-FY; 80053; 82962; 85025; 87040; 87070; 87186; 87205; 93005; 93970-TC; 97116-GP; 97161-GP; 99285-25; G0378

== ENCOUNTER 2019-02-15 09:23 | Emergency (ER) | payer OTHER | END 2019-02-15 12:00 | disposition home or self-care (01) | LOC: JER 09:23 ==

== ENCOUNTER 2020-10-24 16:24 | Emergency (ER) | payer OTHER ==
[2020-10-24 16:40] VITALS: BP 143/98; PULSE 97; TEMP 98; BMI 31.5
[2020-10-24 17:43] LABS: BASO % 2.1 % (0-2.0); EOS % 2.2 % (0-4.5); HEMATOCRIT 46.7 % (35.4-49); HEMOGLOBIN 16.1 GM/dl (11.7-16.9); LYMPH % 30.7 % (8-40); MCH 29.2 pg (25.7-33.7); MCHC 34.6 g/dl (32.0-35.9); MEAN CELL VOLUME 84.5 fl (80-96); MEAN PLT VOLUME 9.2 fl (7.5-11.1); MONO % 8.6 % (3.8-10.2); NEUT % 56.4 % (42.8-82.8); PLATELET COUNT 179 K/MM3 (134-434); RBC 5.53 M/mm3 (4.00-5.60); RDW 12.4 % (11.9-15.9); WHITE BLOOD COUNT 6.1 K/mm3 (4.0-10.8)
[2020-10-24 18:01] LABS: ALBUMIN 4.2 g/dl (3.4-5.0); BILIRUBIN,TOTAL 0.8 mg/dl (0.2-1); CALCIUM 9.4 mg/dl (8.5-10); CREATININE 0.8 mg/dl (0.55-1.3); TOT PROT 7.2 g/dl (6.4-8.2)
[2020-10-24 18:33] LABS: ERYTHROCYTE SEDIMENTATION RATE 7 mm/hr (0-20)
[2020-10-24] MEDS ORDERED: CEPHALEXIN MONOHYDRATE 500 MG CAPSULE (UD) PO ONE (18:59)
[2020-10-24] MEDS ORDERED: SULFAMETHOXAZOLE/TRIMETHOPRIM 800MG/160MG D.S. TABLET PO ONE (18:59)
[2020-10-24] MEDS ORDERED: CEPHALEXIN MONOHYDRATE 500 MG CAPSULE (UD) ONE (19:01)
[2020-10-24] MEDS ORDERED: SULFAMETHOXAZOLE/TRIMETHOPRIM 800MG/160MG D.S. TABLET ONE (19:01)
== END 2020-10-24 19:10 | disposition home or self-care (01) ==
LOC: FER 16:24
DX: E11.621 Type 2 diabetes mellitus with foot ulcer (principal)
CPT/HCPCS: 36415; 73630-TC-RT-FY; 80053; 82962; 85025; 85651; 86140; 99284-25

== ENCOUNTER 2020-10-26 12:55 | Emergency (ER) | payer OTHER ==
[2020-10-26 13:07] VITALS: BP 111/70; PULSE 95; TEMP 97.7; BMI 31.5
== END 2020-10-26 13:44 | disposition home or self-care (01) ==
LOC: FER 12:55
DX: Z48.00 Encounter for change or removal of nonsurgical wound dressing (principal)
CPT/HCPCS: 99281-25